=== PATIENT | male | born 1940 | race Caucasian/White ===

== ENCOUNTER 2017-11-15 10:24 | Inpatient (IN) | payer MEDICARE, BC ==
[2017-11-15 10:57] LABS: #Eosinphils 0.1 thou/uL (0.0-0.7); #Lymphocytes 1.3 thou/uL (1.20-3.40); #Monocytes 0.8 thou/uL (0.11-0.59); #Neutrophils 11.7 thou/uL (1.40-6.50); %Basophils 0.3 % (0.0-1.0); %Eosinophils 0.4 % (0.0-10.0); %Lymphocytes 9.2 % (21.0-51.0); %Monocytes 5.7 % (0.0-10.0); %Neutrophils 84.3 % (42.0-75.0); Hemoglobin 9.6 g/dL (14.0-18.0); Mean Corpuscular Volume 87.9 fL (78.0-98.0); Mean Platelet Volume 7.2 fL (7.4-10.4); Platelet Count 284 thou/uL (130-400); RBC Distribution Width 16.7 % (11.5-14.5); Red Blood Cell (RBC) Count 3.31 mill/uL (4.70-6.10); White Blood Cell (WBC) Count 13.9 thou/uL (4.8-10.8)
--- NOTE | 2017-11-15 11:10 | RAD ---
PORTABLE CHEST: History: Dyspnea. Comparison: 07-16-10 FINDINGS: Heart size is mildly prominent. Post op sternotomy change. Dual-lead pacemaker device appears adequat tamanna positioned. Lung arias appear clear. No infiltrate or vascular congestion. IMPRESSION: No evidence of acute process. POS: [facility]
[2017-11-15 11:18] LABS: ALT (SGPT) 10 U/L (8-55); AST (SGOT) 11 U/L (5-34); Albumin 4.2 g/dL (3.4-4.8); Alkaline Phosphatase 53 U/L (40-150); Anion Gap 18 mmol/L (10-20); BUN (Urea Nitrogen) 60 mg/dL (8.4-25.7); Bilirubin, Total 1.3 mg/dL (0.2-1.2); CK (CPK) 47 U/L (30-200); Calc. Creatinine Clearance 0 mL/min (70-130); Calcium 9.6 mg/dL (7.8-10.44); Carbon Dioxide 20 mmol/L (23-31); Chloride 99 mmol/L (98-107); Estimated GFR-MDRD 54; Globulin 2.3 g/dL (2.4-3.5); Glucose 177 mg/dL (83-110); Protein, Total 6.5 g/dL (5.8-8.1); Sodium 133 mmol/L (136-145)
[2017-11-15 11:23] LABS: CKMB 3.4 ng/mL (0-6.6); Troponin I 0.015 ng/mL (< 0.028)
[2017-11-15] MEDS ORDERED: ISOVUE-370 76%-LOCM 1 ML ONE (12:53)
--- NOTE | 2017-11-15 13:49 | CT ---
CT PULMONARY ANGIOGRAM CHEST WITH 3D RENDERING: HISTORY: A 76-year-old male with a history of dyspnea and hypoxia, shortness of breath. FINDINGS: Postop midline sternotomy and left ICD. Three-vessel coronary artery calcific disease. Motion artif act noted bilaterally lowering the sensitivity of this study, particularly into the smaller-caliber d istal pulmonary arteries. No convincing CT evidence for acute pulmonary embolism. Multiple gallston es within the gallbladder without gallbladder wall thickening or pericholecystic abnormal fat strandi ng. A small hiatal hernia. IMPRESSION: No convincing CT evidence for acute pulmonary embolism. Motion artifact lowers the sensitivity of th is study. Multiple gallstones. Small hiatal hernia. POS: [facility]
--- NOTE | 2017-11-15 16:31 | HP ---
PRIMARY CARE PHYSICIAN: Vijay Fields M.D. PRIMARY OCCUPATIONAL HEALTH AND SAFETY MANAGER: Fredy Waite M.D. REASON FOR ADMISSION: Dyspnea. HISTORY OF PRESENT ILLNESS: A 76-year-old male who has underlying history of hypertension, coronary artery disease with history of CABG as well as chronic lumbar stenosis and radicular pain to left low er extremity, who presented to emergency room with a complaint of shortness of breath. The patient r eports that at home when he stood up and he was trying to urinate, at that point he started feeling s hortness of breath. For last 2-3 days, he is also experiencing more shortness of breath than usual. He is able to ambulate with a walker. Today when paramedics was called by himself, at that time his oxygen saturation was 90% on 2 liters. Subsequently, in the emergency room when he was evaluated at that time, he was found with hypertension and he was saturating normal. He had slightly elevated D- dimer and that is why CT angio was done which was negative for pulmonary embolism. His chest x-ray w as also negative for any congestion. The patient had routine blood tests done which showed mild leuk ocytosis and a slightly elevated BNP. Cardiac enzymes were negative and EKG was unremarkable. The patient was continuously complaining of left lower extremity pain which was radicular pain from h is back which is unchanged significantly from previous. The patient also has previous history of rec drea cancer required chemotherapy and followed by Dr. Kim. This patient is not a good historian. Whenever he talks at that time he feels like he is short of br eath. He does not feel himself anxious. He is not wheezing. He does not have any respiratory sympt oms including cough or hemoptysis. He does not have any orthopnea, PND, or any pitting edema. He de nies any weight gain. He is taking Demadex regularly. For last 2-3 days, he was not able to sleep w ell at home for unknown reasons. He denies any chest pain, but with exertion he feels shortness of b reath. He denies any UTI symptoms. He denies any constipation, diarrhea, melena, or hematochezia. Sometimes he feels lightheaded with the standing position. REVIEW OF SYSTEMS: Please see my HPI for pertinent positive and negative. All other review of syste ms reviewed and negative except as mentioned in the HPI. Constitutional: Weight loss or gain, ability to conduct usual activities. Skin: Rash, itching. Eyes: Double vision, pain. ENT/Mouth: Nose bleeding, neck stiffness, pain, tenderness. Cardiovascular: Palpitations, dyspnea on exertion, orthopnea. Respiratory: Shortness of breath, wheezing, cough, hemoptysis, fever or night sweats. Gastrointestinal: Poor appetite, abdominal pain, heartburn, nausea, vomiting, constipation, or diarrhea. Genitourinary: Urgency, frequency, dysuria, nocturia. Musculoskeletal: Pain, swelling. Neurologic/Psychiatric: Anxiety, depression. Allergy/Immunologic: Skin rash, bleeding tendency. ALLERGIES: No known drug allergy. CURRENT HOME MEDICATIONS: Amlodipine 2.5 mg p.o. daily, aspirin 81 mg p.o. daily, atenolol 25 mg p.o . b.i.d., gabapentin 300 mg twice daily, torsemide 20 mg p.o. daily, Flomax 0.4 mg p.o. daily, [place] thacin 50 mg 3 times daily, Flexeril 10 mg t.i.d. p.r.n., Crestor 5 mg p.o. daily, Xanax 0.5 mg p.o. at bedtime p.r.n., [place] 5 one tablet q.6 hourly p.r.n. PAST MEDICAL HISTORY: Coronary artery disease, required CABG; hypertension; dyslipidemia; chronic co ngestive heart failure; history of rectal cancer treated with chemotherapy; history of CVA; physical deconditioning; lumbar stenosis with radiculopathy. PAST SURGICAL HISTORY: CABG, history of ileostomy with subsequent reversal. PAST PSYCHIATRIC HISTORY: Reviewed and negative. SOCIAL HISTORY: The patient is and lives at home with his family. He drinks alcohol occasio randee. He denies any smoking. He denies any other illicit drug abuse. FAMILY HISTORY: No strong family history of premature coronary artery disease, stroke or cancer. EMERGENCY ROOM COURSE: Reviewed. PHYSICAL EXAMINATION: VITAL SIGNS: Currently, blood pressure 161/67, pulse 95, respiratory rate 28, temperature 98.0, satu ration 100% on 2 liters oxygen. Weight 68 kilograms. GENERAL: The patient is a chronically ill appearing, no obvious acute distress. He is able to talk in full sentences, but appears short of breath. HEAD: Normocephalic, atraumatic. EYES: Pupils round, reactive to light. Extraocular muscle intact. ENT: Oropharynx within normal limits. Moist mucous membranes. No oral lesion, no pharyngeal erythe ma, no exudate. NECK: Supple, no JVD, no thyromegaly, no carotid bruit, no jugular venous distention. LUNGS: Clear to auscultation without any obvious rhonchi or rales. No congestion, no accessory musc les of respiration in use, though patient has tachypnea. CARDIAC: S1, S2 appears regular though monitor showing premature atrial contractions without any mur mur or gallop. ABDOMEN: Soft, bowel sounds present, nontender, nondistended. No organomegaly, no mass, no suprapub ic tenderness. BACK: Unremarkable, no CVA tenderness. EXTREMITIES: Upper extremity: Passive movement of all joints are normal. Lower extremity: Right l ower extremity is congenitally thinner than left lower extremity, but the patient does have mild gustavo ing edema on both lower extremities. NEUROLOGIC: Grossly nonfocal examination. Speech, normal. Motor and sensation within normal limits . SKIN: No skin rash. PSYCHIATRIC: Normal affect. SIGNIFICANT LABORATORY DATA: EKG showing incomplete left bundle branch block pattern, left anterior fascicular block. Chest x-ray showing sternotomy changes. Pacemaker lead in place. CT angio small hiatal hernia, no acute process noted. CBC: WBC 13.9, hemoglobin 9.6, platelet 284. BMP: Sodium 1 33, potassium 4.0, chloride 99, carbon dioxide 20, anion gap 18, BUN 60, creatinine 1.29, glucose 177 , calcium 9.6. LFTs: AST 11, ALT 10, alkaline phosphatase 53, albumin 4.2, CK 47, CK-MB 3.4, troponin I 0.015. D-d tammi 0.50. CT angiography negative for pulmonary embolism, small hiatal hernia noted multiple gallst ones noted. ASSESSMENT AND PLAN: 1. Dyspnea. At this point, etiology is not obvious based on our assessment so far. He has elevated BNP, but he has known history of congestive heart failure. We do not have any echocardiography in o system to determine type of EF and that is why we will obtain echocardiography. I am suspecting h is presentation could be a part of angina equivalent given dyspnea on exertion. We will do serial ca rdiac enzymes x3 and rule out acute coronary syndrome. Dr. Waite will be consulted and he will deci de whether this patient needs any stress test versus cardiac catheterization to determine any underly ing coronary stenosis. He does not have any thromboembolism based on CT angiography and the patient does not have any wheezing, rhonchi, or any respiratory symptoms to points toward lung pathology unde rlying anxiety neurosis is possible. 2. Congestive heart failure. Currently, the patient is euvolemic. We will obtain echocardiography to determine type of congestive heart failure. We will continue Demadex 20 mg p.o. daily. The patie nt already has AICD in place. Based on coronary artery disease and CABG history, suspecting systolic heart failure, but it is chronic and euvolemic. 3. Hypertension. We will continue amlodipine 2.5 mg p.o. daily, atenolol 25 mg twice daily. 4. Lumbar stenosis with radiculopathy. Continue gabapentin 300 mg twice daily, Flexeril 10 mg t.i.d . p.r.n., [place] 5 mg q.6 hourly p.r.n. 5. Dyslipidemia. Continue Crestor 5 mg p.o. at bedtime. Check lipid profile tomorrow morning. 6. Benign enlargement of prostate. Continue Flomax 0.4 mg p.o. daily. 7. Mild hyponatremia, mild leukocytosis. We will repeat CBC and BMP tomorrow. 8. Anemia, normocytic, normochromic. The patient will be given folic acid, vitamin B12, and iron th era. 9. Deep venous thrombosis prophylaxis not needed because we are expecting discharge in 24 hours. 10. Gastrointestinal prophylaxis, Pepcid 20 mg p.o. b.i.d. 11. Code status: The patient is FULL CODE. The patient's is surrogate decision maker. Disposition plan based on clinical course. We will check orthostatic vitals as well,and we will keep him n.p.o. tomorrow morning for possible further evaluation from cardiology perspective.
[2017-11-15] MEDS ORDERED: Artificial Tear Sol 15 ML BOT EA EYE PRN (16:48)
[2017-11-15] MEDS ORDERED: Ondansetron ODT 4 MG TAB PO PRN (16:48)
[2017-11-15] MEDS ORDERED: Loperamide HCl 2 MG CAP PO PRN (16:48)
[2017-11-15] MEDS ORDERED: Sodium Chloride 0.65% Nasal 44 ML BOT EA NARE PRN (16:48)
[2017-11-15] MEDS ORDERED: Chloraseptic Spray 180 ml Bottle PO PRN (16:48)
[2017-11-15] MEDS ORDERED: Senokot S 8.6-50 MG TAB PO PRN (16:48)
[2017-11-15] MEDS ORDERED: Ondansetron HCl/PF 4 MG/2 ML Vial IVP PRN (16:48)
[2017-11-15] MEDS ORDERED: Cyclobenzaprine 10 MG TAB PO PRN (16:48)
[2017-11-15] MEDS ORDERED: Acetaminophen 325 MG TAB PO PRN (16:48)
[2017-11-15] MEDS ORDERED: Eucerin (Mineral Oil/Petrolatum,White) 30 gm Jar TOP PRN (16:48)
[2017-11-15] MEDS ORDERED: Bisacodyl 5 MG TAB PO PRN (16:48)
[2017-11-15] MEDS ORDERED: Loratadine 10 MG TAB PO PRN (16:48)
[2017-11-15] MEDS ORDERED: hydrALAZINE 20 MG/ML VIAL SLOW IVP PRN (16:48)
[2017-11-15] MEDS ORDERED: Diabetic Tussin 200 MG/10 ML UDCUP PO PRN (16:48)
[2017-11-15 18:08] VITALS: BMI 26.7
[2017-11-15 18:57] LABS: CKMB 2.9 ng/mL (0-6.6); Troponin I 0.018 ng/mL (< 0.028)
[2017-11-15] MEDS: Rosuvastatin 5 MG TAB PO SCH (20:32)
[2017-11-15] MEDS: ALPRAZolam 0.5 MG TAB PO PRN (20:34)
[2017-11-15] MEDS: Gabapentin 100 MG CAP PO SCH (20:34)
[2017-11-15] MEDS: Famotidine 20 MG TAB PO SCH (20:34)
[2017-11-15] MEDS ORDERED: Atenolol 25 MG TAB PO SCH (21:00)
[2017-11-15] MEDS ORDERED: Gabapentin 300 MG CAP PO SCH (21:00)
[2017-11-15] MEDS: HYDROcodone/Acetaminophen 5/325 mg Tablet PO PRN (21:41)
[2017-11-15 22:11] LABS: CKMB 2.4 ng/mL (0-6.6); Troponin I 0.017 ng/mL (< 0.028)
[2017-11-16] MEDS: HYDROcodone/Acetaminophen 5/325 mg Tablet PO PRN ×2 (01:40→21:10)
[2017-11-16] MEDS: Zolpidem Tartrate 5 MG TAB PO PRN ×2 (01:42→21:10)
[2017-11-16 04:53] LABS: #Basophils 0.1 thou/uL (0.0-0.2); #Eosinphils 0.3 thou/uL (0.0-0.7); #Lymphocytes 1.2 thou/uL (1.20-3.40); #Neutrophils 6.7 thou/uL (1.40-6.50); %Basophils 0.8 % (0.0-1.0); %Lymphocytes 13.2 % (21.0-51.0); %Monocytes 10.4 % (0.0-10.0); %Neutrophils 72.6 % (42.0-75.0); Hemoglobin 7.7 g/dL (14.0-18.0); Mean Corpuscular HGB CONC 32.7 g/dL (32.0-36.0); Mean Corpuscular Hemoglobin 29.6 pg (27.0-31.0); Mean Corpuscular Volume 90.7 fL (78.0-98.0); Mean Platelet Volume 7.4 fL (7.4-10.4); Platelet Count 244 thou/uL (130-400); RBC Distribution Width 17.3 % (11.5-14.5); White Blood Cell (WBC) Count 9.2 thou/uL (4.8-10.8)
[2017-11-16 04:54] LABS: Anion Gap 15 mmol/L (10-20); BUN (Urea Nitrogen) 53 mg/dL (8.4-25.7); Calc. Creatinine Clearance 54 mL/min (70-130); Calcium 8.7 mg/dL (7.8-10.44); Carbon Dioxide 21 mmol/L (23-31); Cardiac Risk 3.3 (Less than 4.5); Chloride 102 mmol/L (98-107); Cholesterol 72 mg/dl (< 200 Desired); Estimated GFR-MDRD 66; Glucose 121 mg/dL (83-110); HDL Cholesterol 22 mg/dL (>60 Neg Risk); Iron 85 ug/dL (65-175); Iron Binding Capacity, Total 284 mcg/dL (261-462); LDL Cholesterol, Calculated 28 mg/dL; Potassium 3.9 mmol/L (3.5-5.1); Sodium 134 mmol/L (136-145); Triglycerides 111 mg/dL (Less than 150)
[2017-11-16 04:55] LABS: Iron 85 ug/dL (65-175)
[2017-11-16 05:29] LABS: Ferritin 26.23 ng/mL (22-322)
[2017-11-16] MEDS ORDERED: Iron Sucrose Complex 200 MG in Sodium Chloride 0.9% 250 ML 250 ML IVPB SCH (06:45)
[2017-11-16] MEDS ORDERED: Iron Dextran 500 MG in Sodium Chloride 0.9% 250 ML IVPB SCH (06:45)
[2017-11-16] MEDS ORDERED: Ferrous Sulfate 325 MG TAB PO SCH (08:00)
[2017-11-16] MEDS ORDERED: Torsemide 20 MG TAB PO SCH (09:00)
[2017-11-16] MEDS ORDERED: Tamsulosin HCl 0.4 MG CAP PO SCH (09:00)
[2017-11-16] MEDS ORDERED: Amlodipine 5 MG TAB PO SCH (09:00)
[2017-11-16 10:07] LABS: Hemoglobin 8.1 g/dL (14.0-18.0)
[2017-11-16] MEDS: Cyanocobalamin (Vitamin B-12) 1,000 MCG TAB PO SCH (10:23)
[2017-11-16] MEDS: Folic Acid 1 MG TAB PO SCH (10:23)
[2017-11-16] MEDS: Famotidine 20 MG TAB PO SCH ×2 (10:24→21:10)
--- NOTE | 2017-11-16 12:01 | CON ---
DATE OF CONSULTATION: 11/16/2017 REASON FOR CONSULTATION: Difficulty breathing, diastolic congestive heart failure, anemia. HISTORY OF PRESENT ILLNESS: Mr. Padron is a pleasant 76-year-old gentleman who came to the hospital yesterday with shortness of breath. While he has been here, he has been found to be significantly a nemic and iron deficient. The patient does have a previous history of coronary artery bypass grafting. It was noted that his d istal vessels were relatively small on previous evaluation prior to his bypass surgery. He underwent coronary artery bypass grafting by Dr. Salcedo in 2009. He had internal mammary to LAD, 1 mm, vein gr aft to the obtuse marginal 1 mm, vein graft to posterior descending artery 1.5 mm, vein graft to post erolateral artery 1.25 mm. The patient has subsequently had a colon cancer with a successful surgery . He was admitted to the hospital yesterday after complaining of shortness of breath which occurred when he stood up. He has been kept overnight. He says he has been short of breath the last 2-3 days prior to this admission. REVIEW OF SYSTEMS: CONSTITUTIONAL: No significant weight gain or loss. VISION: No changes. HEARING: No changes. PULMONARY: Positive for shortness of breath. CARDIAC: Positive for shortness of breath. GASTROINTESTINAL: No nausea, vomiting, diarrhea. He said he has noted some black stools. SKIN: No rashes. NEUROLOGIC: No unilateral weakness or numbness. PSYCHIATRIC: No unusual depression or anxiety. ALLERGIES: None known. MEDICATIONS PRIOR TO ADMISSION: 1. Amlodipine 2.5 mg a day. 2. Aspirin 81 mg a day. 3. Atenolol 25 mg twice a day. 4. Gabapentin. 5. Torsemide 20 mg a day. 6. Indomethacin 50 mg 3 times a day. 7. Xanax. 8. Crestor. 9. [place]. PAST MEDICAL HISTORY: 1. Coronary artery disease as mentioned above. 2. Hypertension. 3. History of renal insufficiency in 2014. He was on VIC inhibitors at that time. VIC inhibitors w ere stopped. I do not know if he is on nonsteroidal anti-inflammatories at that time, but they need to be stopped. PAST SURGICAL HISTORY: History as outlined above. PSYCHIATRIC HISTORY: Negative. SOCIAL HISTORY: Occasional alcohol, no tobacco. FAMILY HISTORY: Negative for heart disease at a young age. PHYSICAL EXAMINATION: GENERAL: This is a pleasant elderly gentleman, 76 years of age. VITAL SIGNS: Blood pressure 111/53, pulse 70. LUNGS: Clear anterolaterally. CARDIOVASCULAR: Normal S1, normal S2. ABDOMEN: Soft, nontender. EXTREMITIES: No clubbing or cyanosis, no edema. Peripheral pulses are intact. SKIN: Warm and dry. PSYCHIATRIC: Mood and affect normal. NEUROLOGIC: Grossly normal. PERTINENT LABORATORY DATA: Sodium 134, potassium 3.9. BNP 148.5, elevated. Troponin levels were 0. 018 in the negative range. Ferritin level very low at 26.2. ASSESSMENT: 1. Previous coronary artery bypass grafting. 2. Shortness of breath. I got a quick look at the preliminary images of the echo, the ejection frac tion is normal. It appears he has diastolic heart failure, likely acute on chronic, may be precipita memo by anemia. 3. Iron deficiency anemia. 4. On nonsteroidal anti-inflammatories. 5. Some history of renal insufficiency in the past. PLAN: 1. Stop atenolol. 2. Avoid nonsteroidal anti-inflammatories. 3. We will give intravenous iron. 4. He is on Pepcid. 5. Check further blood counts later today. 6. If blood count stabilizes proceed to stress testing tomorrow. 7. Start a very low dose angiotensin receptor blockers and monitor kidney function. 8. As mentioned complete cessation of any anti-inflammatories. We will follow with you during this hospitalization.
--- NOTE | 2017-11-16 14:02 | PDOC.PN ---
- Subjective Encounter Start Date: 11/16/17 Encounter Start Time: 09:30 Subjective: Follow up for admission for dyspnea, HAUSER, denies chest pain - Objective Resuscitation Status: Resuscitation Status FULL:Full Resuscitation MAR Reviewed: Yes Vital Signs & Weight: Vital Signs (12 hours) Temp Pulse Resp BP BP Pulse Ox 11/16/17 10:20 100 11/16/17 07:09 98.1 F 70 16 111/53 L 97 11/16/17 05:03 97.5 F L 70 19 129/58 L 95 Weight Weight 66.361 kg I&O: 11/15/17 11/16/17 11/17/17 06:59 06:59 06:59 Intake Total 480 Output Total 302 Balance 178 Result Diagrams: 11/24/17 03:21 11/24/17 03:21 EKG Reviewed by me: Yes Phys Exam - Physical Examination HEENT: PERRLA, moist MMs Neck: no nodes, no JVD Respiratory: no rales, clear to auscultation bilateral Cardiovascular: RRR Gastrointestinal: soft, non-tender Musculoskeletal: pulses present right leg is congentially shorter than left Neurological: normal sensation, moves all 4 limbs Lymphatic: no nodes Psychiatric: normal affect, A&O x 3 Skin: no rash, normal turgor, cap refill <2 seconds Dx/Plan (1) CHF (NYHA class III, ACC/AHA stage C) Code(s): I50.9 - HEART FAILURE, UNSPECIFIED Status: Chronic Plan: Stress test and Echo today, Dr. Waite changed his medication, dc'd atenolol, added benicar, will continue to monitor Comment: Diastolic, Compensated currently, med mgmt, no exacerbation (2) Iron deficiency anemia Code(s): D50.9 - IRON DEFICIENCY ANEMIA, UNSPECIFIED Status: Chronic Plan: Dr. Waite ordered 2 bags of IV Ferritin infusion to be given today, we will continue to monitor (3) Hypertension Code(s): I10 - ESSENTIAL (PRIMARY) HYPERTENSION Status: Chronic Plan: change to benicar from atenolol, will continue to monitor Comment: controlled - Plan cont current plan of care, DVT proph w/lovenox Patient had a consult from Dr. Waite this AM, patient is going for Echo and a Stress test today * .
[2017-11-16] MEDS: Iron, Sodium Ferric Gluconate 250 MG, Admixture Fee 1 EACH in Sodium Chloride 0.9% 250 ... IVPB SCH ×2 (14:12→21:05)
--- NOTE | 2017-11-16 14:29 | PDOC.EVN ---
Event Note - Event Note Event Note: discussed POC with rachael Candelaria with same
--- NOTE | 2017-11-16 16:08 | PDOC.EVN ---
Event Note - Event Note Event Note: pos stress test. again dicuuued plan with NACHO Marcano
--- NOTE | 2017-11-16 16:10 | PDOC.EVN ---
Event Note - Event Note Event Note: Mr. Padron had a positive stress test and Dr. Waite notified. Patient will be admitted for cardiac cath tomorrow.
--- NOTE | 2017-11-16 16:46 | NM ---
MYOCARDIAL PERFUSION EXAM: 11/16/17 Patient was given 9 millicuries of technetium labeled Sestamibi for rest imaging and 30 millicuries f or stress imaging. The patient was stressed according to Lexiscan protocol. INDICATIONS: Chest pain. Left ventricle is imaged with SPECT imaging. CT attenuation images obtained. FINDINGS: There is evidence of reversible ischemia involving the apex with involvement of the anterior and late ral apical nunes. Wall motion shows mild dyskinesis involving the anterior and septal nunes. Ejection fraction recorded at 61%. IMPRESSION: Positive Sestamibi stress test with evidence of reversible ischemic as described above. POS: [facility]
[2017-11-16] MEDS ORDERED: Sodium Chloride 0.9% 500 ML IV SCH (17:45)
[2017-11-16] MEDS ORDERED: Regadenoson 0.4 MG/5 ML SYRINGE ONE (17:46)
[2017-11-16] MEDS ORDERED: Communication Order-Pharmacy FS SCH (18:15)
[2017-11-16] MEDS ORDERED: Diazepam 5 MG TAB PO SCH (18:15)
--- NOTE | 2017-11-16 21:07 | PRG ---
DATE OF SERVICE: 11/16/2017 Mr. Padron had a stress test done today, which showed extensive anterior ischemia. He did receive intravenous iron, was sitting on the side of the bed and the infusion was at 135 an ho ur. His pressure dropped at that time, it is unclear whether his iron is probably multifactorial. ASSESSMENT: 1. Extensive anterior ischemia. 2. Previous bypass surgery. 3. Right bundle branch block. PLAN: Cardiac catheterization tomorrow. I discussed risks of stroke, heart attack, iodine allergy, loss of blood supply to the leg or kidney, stent thrombosis, stent restenosis. He understands and wi shes to proceed. I will be out tomorrow. One of my partners probably Dr. Tong to do tomorrow.
[2017-11-16] MEDS: Gabapentin 100 MG CAP PO SCH (21:09)
[2017-11-16] MEDS: ALPRAZolam 0.5 MG TAB PO PRN (21:10)
[2017-11-16] MEDS: Rosuvastatin 5 MG TAB PO SCH (21:10)
[2017-11-17] MEDS: Nitroglycerin 0.4 MG TAB (25 Tab Bottle) SL PRN ×2 (00:36→00:39)
[2017-11-17] MEDS ORDERED: Lidocaine 1% (PF) 30 ML VIAL ONE ×2 (08:29→11:58)
[2017-11-17] MEDS ORDERED: Iopamidol 370 76% 50 ML VIAL FS ONE (10:36)
[2017-11-17] MEDS ORDERED: Iopamidol 370 76% 100 ML VIAL ONE (10:36)
[2017-11-17] MEDS ORDERED: Heparin 10,000 UNITS/1 ML VIAL ONE (12:32)
[2017-11-17] MEDS ORDERED: Nitroglycerin 100MG/250ML BOT 250 ML ONE (12:32)
[2017-11-17] MEDS: Sodium Chloride 0.9% 1,000 ML IV SCH ×3 (13:26→17:36)
[2017-11-17] MEDS ORDERED: TICAGRELOR 90 MG TABLET ONE (13:55)
[2017-11-17] MEDS: Folic Acid 1 MG TAB PO SCH (17:05)
[2017-11-17] MEDS: Famotidine 20 MG TAB PO SCH ×3 (17:05→20:39)
[2017-11-17] MEDS: Cyanocobalamin (Vitamin B-12) 1,000 MCG TAB PO SCH (17:05)
--- NOTE | 2017-11-17 17:05 | PDOC.PN ---
- Subjective Encounter Start Date: 11/17/17 Encounter Start Time: 16:00 Subjective: f/u for positive stress test yesterday -: scheduled for cardiac cath today - Objective Resuscitation Status: Resuscitation Status FULL:Full Resuscitation MAR Reviewed: Yes Vital Signs & Weight: Vital Signs (12 hours) Temp Pulse Resp BP Pulse Ox 11/17/17 16:23 97.6 F 71 16 118/58 L 95 Weight Weight 66.361 kg I&O: 11/16/17 11/17/17 11/18/17 06:59 06:59 06:59 Intake Total 480 970 Output Total 302 100 Balance 178 870 Result Diagrams: 11/16/17 09:50 11/16/17 03:50 Radiology Reviewed by me: Yes Phys Exam - Physical Examination HEENT: PERRLA, moist MMs, sclera anicteric Neck: no nodes, no JVD, full ROM Respiratory: no wheezing, no rales, no rhonchi, wheezing present, clear to auscultation bilateral Cardiovascular: RRR, no significant murmur, no rub, gallop, irregular Gastrointestinal: soft, non-tender, no distention, positive bowel sounds reports some worsening pain to his right leg from being in the hospital bed reports pain is chronic but worse today Neurological: non-focal, normal sensation, moves all 4 limbs Lymphatic: no nodes Psychiatric: normal affect, A&O x 3 Skin: no rash, normal turgor, cap refill <2 seconds Dx/Plan (1) CHF (NYHA class III, ACC/AHA stage C) Code(s): I50.9 - HEART FAILURE, UNSPECIFIED Status: Chronic (2) Iron deficiency anemia Code(s): D50.9 - IRON DEFICIENCY ANEMIA, UNSPECIFIED Status: Chronic (3) Hypertension Code(s): I10 - ESSENTIAL (PRIMARY) HYPERTENSION Status: Chronic - Plan cont current plan of care, DVT proph w/SCDs Patient had a cardiac cath today with one stent placed. Will continue to monitor overnight. * .
[2017-11-17] MEDS ORDERED: Nitroglycerin 0.4 MG TAB (25 Tab Bottle) SL PRN (17:07)
[2017-11-17 17:38] LABS: #Eosinphils 0.3 thou/uL (0.0-0.7); #Lymphocytes 0.8 thou/uL (1.20-3.40); #Monocytes 0.6 thou/uL (0.11-0.59); #Neutrophils 5.6 thou/uL (1.40-6.50); %Basophils 0.5 % (0.0-1.0); %Eosinophils 3.9 % (0.0-10.0); %Lymphocytes 10.6 % (21.0-51.0); %Monocytes 8.2 % (0.0-10.0); %Neutrophils 76.8 % (42.0-75.0); Hemoglobin 6.7 g/dL (14.0-18.0); Mean Corpuscular HGB CONC 33.1 g/dL (32.0-36.0); Mean Corpuscular Volume 90.6 fL (78.0-98.0); Mean Platelet Volume 7.4 fL (7.4-10.4); Platelet Count 194 thou/uL (130-400); RBC Distribution Width 17.4 % (11.5-14.5); Red Blood Cell (RBC) Count 2.22 mill/uL (4.70-6.10); White Blood Cell (WBC) Count 7.3 thou/uL (4.8-10.8)
[2017-11-17] MEDS: HYDROcodone/Acetaminophen 5/325 mg Tablet PO PRN (20:22)
[2017-11-17] MEDS: Rosuvastatin 5 MG TAB PO SCH ×2 (20:23→20:25)
[2017-11-17] MEDS: Gabapentin 100 MG CAP PO SCH ×2 (20:23→20:25)
[2017-11-17] MEDS: Zolpidem Tartrate 5 MG TAB PO PRN (20:23)
[2017-11-17] MEDS: ALPRAZolam 0.5 MG TAB PO PRN (20:23)
[2017-11-17] MEDS: Tamsulosin HCl 0.4 MG CAP PO SCH (20:24)
--- NOTE | 2017-11-17 23:24 | CCL ---
ADDENDUM: After proceeding with angiography, I reviewed his previous films during the case. It appeared the LAD was 100% occluded in the mid section. There was a diagonal branch with a 70-80% stenosis in the mid region. It was then decided to proceed with angiography. Prior to angiography, I did consent the procedure w ith the patient in full detail. The risks include but are not limited to the following: , stro ke, [place], need for emergency surgery, loss of limb, bleeding, and infection, as well as a reaction to t he dye causing kidney failure and needing long-term dialysis. I also discussed the risks of PCI to i nclude all of the above including coronary dissection and perforation in addition to acute stent thro mbosis and restenosis. All questions about the procedure were answered. Given the above, the patien t agreed to proceed with coronary angiography and possible PCI. All questions were answered. Also discussed drug-coated versus nondrug-coated stent placement. There were no contraindications. We will proceed if needed. He does have back pain, but states injection s and surgery are no longer needed.
[2017-11-18] MEDS: Sodium Chloride 0.9% 1,000 ML IV SCH ×3 (03:16→18:14)
[2017-11-18 06:09] LABS: #Eosinphils 0.2 thou/uL (0.0-0.7); #Lymphocytes 0.6 thou/uL (1.20-3.40); #Monocytes 0.6 thou/uL (0.11-0.59); #Neutrophils 5.1 thou/uL (1.40-6.50); %Basophils 0.6 % (0.0-1.0); %Eosinophils 2.9 % (0.0-10.0); %Lymphocytes 8.9 % (21.0-51.0); %Monocytes 8.5 % (0.0-10.0); Hemoglobin 6.2 g/dL (14.0-18.0); Mean Corpuscular HGB CONC 33.4 g/dL (32.0-36.0); Mean Corpuscular Hemoglobin 30.2 pg (27.0-31.0); Mean Corpuscular Volume 90.3 fL (78.0-98.0); Mean Platelet Volume 6.7 fL (7.4-10.4); Platelet Count 164 thou/uL (130-400); RBC Distribution Width 17.2 % (11.5-14.5); Red Blood Cell (RBC) Count 2.04 mill/uL (4.70-6.10); White Blood Cell (WBC) Count 6.5 thou/uL (4.8-10.8)
[2017-11-18 06:33] LABS: Anion Gap 12 mmol/L (10-20); BUN (Urea Nitrogen) 24 mg/dL (8.4-25.7); Calc. Creatinine Clearance 70 mL/min (70-130); Calcium 8.4 mg/dL (7.8-10.44); Carbon Dioxide 21 mmol/L (23-31); Chloride 109 mmol/L (98-107); Estimated GFR-MDRD 89; Glucose 96 mg/dL (83-110); Potassium 3.7 mmol/L (3.5-5.1); Sodium 138 mmol/L (136-145)
[2017-11-18 06:36] LABS: ALT (SGPT) 8 U/L (8-55); AST (SGOT) 11 U/L (5-34); Albumin 3.2 g/dL (3.4-4.8); Alkaline Phosphatase 43 U/L (40-150); Anion Gap 10 mmol/L (10-20); BUN (Urea Nitrogen) 24 mg/dL (8.4-25.7); Bilirubin, Total 0.8 mg/dL (0.2-1.2); Calc. Creatinine Clearance 69 mL/min (70-130); Calcium 8.4 mg/dL (7.8-10.44); Carbon Dioxide 22 mmol/L (23-31); Chloride 109 mmol/L (98-107); Estimated GFR-MDRD 86; Globulin 1.8 g/dL (2.4-3.5); Glucose 98 mg/dL (83-110); Potassium 3.6 mmol/L (3.5-5.1); Sodium 137 mmol/L (136-145)
[2017-11-18] MEDS ORDERED: Clopidogrel Bisulfate 75 MG TAB PO SCH (09:00)
[2017-11-18] MEDS ORDERED: Acetaminophen 325 MG TAB PO SCH (09:00)
[2017-11-18] MEDS ORDERED: diphenhydrAMINE 50 MG CAP PO SCH (09:00)
[2017-11-18] MEDS: Famotidine 20 MG TAB PO SCH ×2 (09:37→21:47)
[2017-11-18] MEDS: Cyanocobalamin (Vitamin B-12) 1,000 MCG TAB PO SCH (09:38)
[2017-11-18] MEDS: Folic Acid 1 MG TAB PO SCH (09:38)
--- NOTE | 2017-11-18 11:40 | PDOC.PN ---
- Subjective Encounter Start Date: 11/18/17 Encounter Start Time: 08:00 Subjective: Follow up from SOB, cardiac cath yesterday, - Objective Resuscitation Status: Resuscitation Status FULL:Full Resuscitation MAR Reviewed: Yes Vital Signs & Weight: Vital Signs (12 hours) Temp Pulse Resp BP Pulse Ox 11/18/17 11:04 97.9 F 20 98 11/18/17 10:40 98.4 F 22 H 98 11/18/17 07:40 98.3 F 86 24 H 136/62 96 11/18/17 03:55 98.5 F 80 14 128/60 95 Weight Weight 65.045 kg Most Recent Monitor Data Heart Rate from ECG 87 NIBP 110/51 I&O: 11/17/17 11/18/17 11/19/17 06:59 06:59 06:59 Intake Total 970 2830 0 Output Total 100 100 Balance 870 2730 0 Result Diagrams: 11/18/17 05:51 11/18/17 05:51 Phys Exam - Physical Examination pleasant, denies pain today, in no acute distress HEENT: PERRLA, moist MMs, sclera anicteric Neck: no nodes, full ROM Respiratory: no wheezing, no rales, no rhonchi, wheezing present, clear to auscultation bilateral Cardiovascular: RRR, no significant murmur, no rub, gallop, irregular Gastrointestinal: soft, non-tender, no distention, positive bowel sounds right leg shorter/thinner than left Neurological: non-focal, normal sensation, moves all 4 limbs Psychiatric: normal affect, A&O x 3 Skin: no rash, normal turgor, cap refill <2 seconds Dx/Plan (1) CHF (NYHA class III, ACC/AHA stage C) Code(s): I50.9 - HEART FAILURE, UNSPECIFIED Status: Chronic (2) Iron deficiency anemia Code(s): D50.9 - IRON DEFICIENCY ANEMIA, UNSPECIFIED Status: Chronic (3) Hypertension Code(s): I10 - ESSENTIAL (PRIMARY) HYPERTENSION Status: Chronic - Plan cont current plan of care -: Hemaglobin down to 6.2, 2 PRBC units order today by Dr. Tong -: GI consult for possible lower GI, has hx of colon ca, on plavix and ASA -: Continue to monitor H&H, labs, vital signs * .
[2017-11-18] MEDS: Furosemide 20 MG/2 ML VIAL SLOW IVP SCH ×2 (14:29→18:20)
--- NOTE | 2017-11-18 19:51 | PDOC.CTH ---
Cardiology Progress Note - Subjective Pt doing well this am. Followed up with pt several times this am and this afternoon. Despite Hb of 6.2, no symptoms. Does not complain of hematochezia or melena. Previous EGD per pt last yr and preequent colonscopy per daughter given h/o rectal cancer. - Objective Vital Signs Temp Pulse Resp BP BP Pulse Ox 11/18/17 18:20 97.9 F 20 100 11/18/17 15:19 97.9 F 20 100 11/18/17 15:15 97.9 F 69 20 122/56 L 100 11/18/17 14:11 97.7 F 20 98 11/18/17 11:07 97.9 F 87 20 110/51 L 11/18/17 11:04 97.9 F 20 98 11/18/17 10:40 98.4 F 22 H 98 11/18/17 07:40 98.3 F 86 24 H 136/62 96 Weight 143 lb 6.4 oz 11/17/17 11/18/17 11/19/17 06:59 06:59 06:59 Intake Total 970 2830 700 Output Total 100 100 Balance 870 2730 700 - Physical Examination General/Neuro: NAD Neck: carotid US brisk, no JVD present Lungs: CTA, unlabored respirations Heart: PMI normal, RRR Abdomen: no HSM, NT/ND, soft Extremities: + edema B - Labs Result Diagrams: 11/18/17 05:51 11/18/17 05:51 Troponin/CKMB CK-MB (CK-2) 2.4 ng/mL (0-6.6) 11/15/17 21:32 Troponin I 0.017 ng/mL (< 0.028) 11/15/17 21:32 - Assessment/Plan Severe CAD s/p CABG Severe one vessel disease s/p drug coated stent Anemia CV status stable Given low Hb, recommend transfusion of two units GI consult; discussed with GI
[2017-11-18 20:23] LABS: Hemoglobin 9.4 g/dL (14.0-18.0)
[2017-11-18] MEDS: Zolpidem Tartrate 5 MG TAB PO PRN (21:46)
[2017-11-18] MEDS: Rosuvastatin 5 MG TAB PO SCH (21:48)
[2017-11-18] MEDS: HYDROcodone/Acetaminophen 5/325 mg Tablet PO PRN (21:49)
[2017-11-18] MEDS: Tamsulosin HCl 0.4 MG CAP PO SCH ×2 (21:50→21:53)
[2017-11-18] MEDS: ALPRAZolam 0.5 MG TAB PO PRN (21:50)
[2017-11-19 04:59] LABS: #Basophils 0.1 thou/uL (0.0-0.2); #Eosinphils 0.2 thou/uL (0.0-0.7); #Lymphocytes 1.2 thou/uL (1.20-3.40); #Monocytes 0.9 thou/uL (0.11-0.59); #Neutrophils 7.1 thou/uL (1.40-6.50); %Basophils 0.5 % (0.0-1.0); %Lymphocytes 12.3 % (21.0-51.0); %Neutrophils 75.2 % (42.0-75.0); Hemoglobin 7.5 g/dL (14.0-18.0); Mean Corpuscular HGB CONC 33.9 g/dL (32.0-36.0); Mean Corpuscular Hemoglobin 30.5 pg (27.0-31.0); Mean Corpuscular Volume 89.9 fL (78.0-98.0); Mean Platelet Volume 7.5 fL (7.4-10.4); Platelet Count 216 thou/uL (130-400); RBC Distribution Width 16.8 % (11.5-14.5); Red Blood Cell (RBC) Count 2.47 mill/uL (4.70-6.10); White Blood Cell (WBC) Count 9.4 thou/uL (4.8-10.8)
[2017-11-19] MEDS ORDERED: Pantoprazole 40 MG VIAL IVP SCH (05:00)
[2017-11-19] MEDS ORDERED: Pantoprazole 80 MG in Sodium Chloride 0.9% 100 ML IVP SCH (05:00)
[2017-11-19] MEDS ORDERED: Sodium Chloride 0.9% 1,000 ML IV SCH (05:00)
[2017-11-19 05:17] LABS: ALT (SGPT) Less than 7 U/L (8-55); AST (SGOT) 10 U/L (5-34); Albumin 3.1 g/dL (3.4-4.8); Alkaline Phosphatase 44 U/L (40-150); Anion Gap 13 mmol/L (10-20); BUN (Urea Nitrogen) 39 mg/dL (8.4-25.7); Bilirubin, Total 1.4 mg/dL (0.2-1.2); Calc. Creatinine Clearance 57 mL/min (70-130); Calcium 8.4 mg/dL (7.8-10.44); Carbon Dioxide 22 mmol/L (23-31); Chloride 104 mmol/L (98-107); Estimated GFR-MDRD 72; Globulin 1.7 g/dL (2.4-3.5); Glucose 180 mg/dL (83-110); Potassium 3.8 mmol/L (3.5-5.1); Protein, Total 4.8 g/dL (5.8-8.1); Sodium 135 mmol/L (136-145)
--- NOTE | 2017-11-19 06:21 | PDOC.EVN ---
Event Note - Event Note Event Note: paged by RN pt was hypotensive, and orthostatic, found to have large melanotic stool, pt has received hydration, and will receive blood transfusion given significant drop in hb and active bleeding in an scenario where patient has got recent stent and currently in aspirin and plavix, GI had been consulted
[2017-11-19] MEDS ORDERED: Promethazine HCl 25 MG/ML VIAL IM PRN (07:11)
[2017-11-19] MEDS ORDERED: Ondansetron HCl/PF 4 MG/2 ML Vial IVP PRN (07:11)
[2017-11-19] MEDS ORDERED: Promethazine HCl 25 MG/ML VIAL SLOW IVP PRN (07:11)
--- NOTE | 2017-11-19 07:53 | CON ---
DATE OF CONSULTATION: 11/18/2017 REASON FOR CONSULTATION: Anemia. CONSULTING PHYSICIAN: Dr. Peter Tong. HISTORY OF PRESENT ILLNESS: The patient is a 76-year-old male with past medical history of atrial fi brillation, on anticoagulation; coronary artery disease, status post CABG; hypertension; hyperlipidem ia; congestive heart failure; cerebrovascular accident; lumbar stenosis; and rectal cancer, status po st chemotherapy; presenting with complaints of anemia. He was initially admitted to the hospital wit h complaints of increased shortness of breath that occurred with postural changes and with micturitio n. With his increased shortness of breath, he subsequently called the paramedics, who transferred catalina wilder to [facility] for further evaluation. During the course of this hospitalization, he under went a nuclear stress test that was shown to have ischemia to the anterior wall. This then further p rompted a cardiac catheterization that was performed on 11/16/2017 with stent placement for revascula rization; however, over the last 48 hours, he was also noted to have a mild anemia on admission that had since decreased to hemoglobin of 7.7 on 11/16/2017 prior to the cardiac catheterization. He was ultimately given 2 units of blood and responded appropriately over the last 24 hours. Upon interview ing the patient today, he denies any evidence of overt GI bleeding, although he did have some darker brown/black-colored solid stools within the last 2-3 weeks prior to admission. He does endorse const ipation at home, having approximately one solid bowel movement every 4-5 days that would require incr eased straining in order to facilitate defecation prior to admission. At this point, he currently de nies any nausea, vomiting, fevers, chills, shortness of breath, abdominal pain, GI bleeding, dysphagi a, odynophagia, or weight loss. His most recent colonoscopy was performed on 12/03/2015 that showed a normal rectal colonic anastomos is as well as normal-appearing tissue throughout the remainder of the colon. His most recent upper e ndoscopy was performed on 09/15/2016, which showed 2 strictures at 36 cm and 20 cm past the incisors that were successfully intervened upon by balloon. REVIEW OF SYSTEMS: A 10-category review of systems was obtained with all responses negative except f or the pertinent positives as listed in the HPI. PAST MEDICAL HISTORY: As per HPI. PAST SURGICAL HISTORY: CABG, colonic resection with ileostomy, and subsequent reversal. FAMILY HISTORY: Denies any GI malignancy. SOCIAL HISTORY: Occasional alcohol use. Denies any tobacco or illicit drug use. OUTPATIENT MEDICATIONS: Reviewed. ALLERGIES: No known drug allergies. PHYSICAL EXAMINATION: VITAL SIGNS: Temperature 98.8, pulse 93, blood pressure 110/53, respiratory rate 20, satting 98% on room air. GENERAL: The patient was lying in bed in no acute distress. Alert and oriented x4. HEENT: Neck is supple. No JVD or scleral icterus noted. CARDIOVASCULAR: Regular rate and rhythm with a 3/6 systolic murmur, best heard at the left upper farshad rnal border. No discernible gallops or rubs were auscultated. RESPIRATORY: Clear to auscultation bilaterally with no discernible wheezes or rales. ABDOMINAL: Normoactive bowel sounds, soft, nontender, nondistended. EXTREMITIES: No cyanosis, clubbing, or edema. LABORATORY DATA: CBC with a white blood cell count of 6.5, hemoglobin 6.5, hematocrit 18.4, platelet s 164. Iron 85, TIBC 284, ferritin 26. Chemistry with a sodium of 138, potassium 3.7, chloride 109, CO2 of 21, BUN 24, creatinine 0.84, glucose 96, AST 11, ALT 8, alkaline phosphatase 43, total biliru bin 0.8, albumin 3.2. IMAGING DATA: EGD and colonoscopy as reviewed above. CT angiography performed on 11/15/2017 was wit hout evidence of pulmonary embolism. ASSESSMENT AND PLAN: The patient is a 76-year-old male with past medical history of atrial fibrillat ion; coronary artery disease, status post coronary artery bypass grafting and now recently stent plac ement; hypertension; hyperlipidemia; congestive heart failure; cerebrovascular accident; lumbar steno sis; and rectal cancer, status post colonic resection, chemotherapy, and reanastomosis, presenting wi th significant anemia of unknown etiology. Anemia of unknown etiology. The patient is presenting with increased shortness of breath at rest and exertion, especially with micturition with a recent cardiac stress test positive for anterior wall i schemia. He subsequently underwent a cardiac catheterization on 11/17/2017 with a stent placement at that time. However, during the course of this hospitalization, he has been noted to have a decreasi ng H and H without any evidence of overt bleeding, GI or otherwise. Upon review of his iron indices, they were not indicative of an iron deficiency anemia, but rather anemia of chronic disease or renal disease. Upon review of his prior endoscopies within the last 2-3 years, there was no evidence of c olonic polyp or malignancy on the most recent colonoscopy in 2016, but he did have an upper endoscopy in 2017 that showed the presence of esophageal strictures, but he is not currently complaining of dy sphagia at the current time. At this point, the differential is broad, but could include mild bleedi ng within the gastrointestinal tract, contributing to his current anemia, although chronic gastrointe stinal bleeding is much less likely given the fairly normal iron indices not indicative of an iron de ficiency anemia or anemia of chronic gastrointestinal blood loss. RECOMMENDATIONS: 1. We would continue to trend H and H and transfuse as necessary to maintain an H and H of 7/21. 2. Continue to monitor clinically for signs of active gastrointestinal bleeding. 3. We will place the patient on a clear liquid diet tonight with n.p.o. at midnight in preparation f or both an EGD and colonoscopy in the morning for further evaluation of this anemia. 4. If the upper and lower endoscopy are normal or there is no evidence of GI bleeding, I would consi toni non-GI source of bleeding given the lack of iron deficiency anemia or anemia of gastrointestinal blood loss on labs. We will continue to follow. Please call with any questions.
--- NOTE | 2017-11-19 09:01 | PDOC.CTH ---
Cardiology Progress Note - Subjective Pt with recent episode of orthostatic hypotension followed by large melanic stool. Pt transferred to MICU for observation. EGD this am reveled two small ulcers. One underwent caudery while the other was clean. Likely related to NSAID use. - Objective Vital Signs Temp Pulse Resp BP BP Pulse Ox 11/19/17 05:53 100 11/19/17 05:15 97.9 F 83 18 117/45 L 100 11/19/17 04:48 104 H 112/55 L 11/19/17 04:44 99 102/49 L 11/19/17 04:27 94 95/53 L 11/19/17 03:35 98.4 F 79 19 132/75 94 L 11/18/17 23:40 98.8 F 93 20 110/53 L 98 Weight 143 lb 6.4 oz 11/18/17 11/19/17 11/20/17 06:59 06:59 06:59 Intake Total 2830 1550 Output Total 100 2751 Balance 2730 -1201 - Labs Result Diagrams: 11/19/17 10:57 11/19/17 04:27 Troponin/CKMB CK-MB (CK-2) 2.4 ng/mL (0-6.6) 11/15/17 21:32 Troponin I 0.017 ng/mL (< 0.028) 11/15/17 21:32 - Assessment/Plan GI bleed Severe CAD s/p stent hemodynamically stable Discussed with Dr. Ivy. Recommend stopping ASA for 24 hours and continuing with plavix to allow ulcer to heal. No good data on how to proceed after stent implantation and GI bleed. Pt with significant drop on Hb from 11/16 to 11/17 noted.
[2017-11-19] MEDS: Famotidine 20 MG TAB PO SCH ×2 (10:42→21:52)
[2017-11-19] MEDS: Folic Acid 1 MG TAB PO SCH (10:42)
[2017-11-19] MEDS: Cyanocobalamin (Vitamin B-12) 1,000 MCG TAB PO SCH (10:42)
[2017-11-19 11:10] LABS: Hemoglobin 11.2 g/dL (14.0-18.0)
[2017-11-19] MEDS ORDERED: ePHEDrine/0.9% NaCl/PF SYRINGE 50 mg/10 ml ONE (11:24)
[2017-11-19] MEDS ORDERED: Lidocaine 1% PF 5 ML VIAL ONE (11:24)
[2017-11-19] MEDS ORDERED: Succinylcholine Chloride 20 MG/ML 10 ml SYRINGE FS ONE (11:24)
[2017-11-19] MEDS ORDERED: PROPOFOL 200 MG/20 ML VIAL ONE (11:24)
[2017-11-19] MEDS ORDERED: Ondansetron HCl/PF 4 MG/2 ML Vial ONE (11:24)
[2017-11-19] MEDS ORDERED: Dexamethasone 20 MG/5 ML VIAL ONE (11:24)
[2017-11-19] MEDS ORDERED: PHENYLEPHRINE-NS 100 MCG/ML 10 ML SYRINGE ONE (11:24)
--- NOTE | 2017-11-19 13:06 | OP ---
DATE OF PROCEDURE: 11/19/2017. PROCEDURE: Esophagogastroduodenoscopy with control of hemorrhage, dilation with esophageal balloon. INDICATION FOR PROCEDURE: Melena, anemia. DESCRIPTION OF PROCEDURE: After the risks and benefits of the procedure were explained to the patien t including risks of bleeding, infection, perforation, reactions to anesthesia, aspiration and/or francisco n, informed consent was obtained. The patient was then taken to the endoscopy suite where general an esthesia was administered with endotracheal tube intubation. Once the patient was adequately sedated , paralyzed and intubated, he was maneuvered into the left lateral position in preparation for the pr ocedure. The standard gastroscope was then introduced into the mouth with intubation of the esophagu s, stomach, the proximal small intestine with the findings listed below. The patient tolerated the p rocedure well with no immediate perioperative complications. After the procedure was complete, the p atient was transferred to PACU in satisfactory condition. FINDINGS: Esophagus: Normal appearing mucosa was seen in the proximal and mid esophagus; however, in the dista l esophagus at approximately 36 cm past the incisors, there was a higher grade esophageal stricture t hat was initially unable to be traversed with the standard gastroscope. Using a CRE TTS esophageal b alloon, it was introduced into the esophageal lumen and placed just beyond the stricture itself. The balloon was then inflated to 8 mm and then to 9 mm for successive dilation of the stricture. At 9 m m, the balloon was then retracted and the gastroscope was then successfully passed into the gastric l umen. There was no evidence of ulcerations, esophagitis or mass lesions within the distal esophagus. Stomach: Normal appearing mucosa was seen in the gastric cardia, fundus, body, greater curvature, an d incisura. However, two ulcerations were seen in the gastric antrum measuring approximately 3 mm an d 5 mm in size. The 3 mm ulcer was located at approximately 10 o'clock position in relation to the p ylorus. It was clean based with no high-risk stigmata of active or recent bleeding. However, the se cond ulcer measuring 5 mm was located at a 4-5 o'clock position in relation to the pylorus. This ulc eration had an adherent clot that were removed revealed a small visible vessel consistent with a high risk stigmata of recent bleeding. With this stigmata and risk of rebleeding, this was intervened up on with bipolar cauterization using a 10-[place] bipolar heater probe with successful hemostasis achie saba. Otherwise, there were no other abnormalities seen within the antrum. Duodenum: Normal appearing mucosa was seen in both the duodenal bulb and second portion of the duode num. There was no evidence of erosions, ulcerations, mass lesions or active/recent bleeding. IMPRESSION: 1. Two ulcerations seen in the gastric antrum measuring 3 mm and 5 mm in size. The 5 mm ulceration exhibited high risk stigmata of recent bleeding and was successfully intervened upon with bipolar cau terization. 2. Higher grade esophageal stricture at 36 cm past the incisors successfully dilated to 9 mm. RECOMMENDATIONS: 1. We would continue to trend H&H, transfuse as necessary to maintain an H&H of 7/. 2. We will continue to monitor clinically for signs of active gastrointestinal bleeding. 3. We would hold aspirin for at least the next 24 hours in an attempt to promote healing of the ovidio stacie ulceration and prevent further bleeding. However, given his recent cardiac catheterization and s tent placement, Plavix can be continued throughout this time. 4. We would monitor in the IMCU given the recent intervention done today and full anticoagulation wi th Plavix with increased risk of bleeding with both of these modalities. We will continue to follow. Please call with any questions.
--- NOTE | 2017-11-19 14:44 | PDOC.PN ---
- Subjective Encounter Start Date: 11/19/17 Encounter Start Time: 14:35 Subjective: f/u for GI bleed s/p EGD showing bleeding ulcer with cauterization. -: Received 2u PRBC's today for total of 4u. Feels ok overall. Nsg reports -: pt stable. - Objective Resuscitation Status: Resuscitation Status FULL:Full Resuscitation MAR Reviewed: Yes Vital Signs & Weight: Vital Signs (12 hours) Temp Pulse Resp BP BP Pulse Ox 11/19/17 08:00 100 11/19/17 05:53 100 11/19/17 05:15 97.9 F 83 18 117/45 L 100 11/19/17 04:48 104 H 112/55 L 11/19/17 04:44 99 102/49 L 11/19/17 04:27 94 95/53 L 11/19/17 03:35 98.4 F 79 19 132/75 94 L Weight Weight 143 lb 6.4 oz Most Recent Monitor Data Heart Rate from ECG 69 NIBP 130/61 I&O: 11/18/17 11/19/17 11/20/17 06:59 06:59 06:59 Intake Total 2830 1550 Output Total 100 2751 Balance 2730 -1201 Result Diagrams: 11/19/17 10:57 11/19/17 04:27 Additional Labs: Accuchecks 11/19/17 04:10 POC Glucose 186 H Laboratory Tests 11/18/17 11/18/17 11/19/17 05:51 20:06 04:27 Hgb 6.2 L 9.4 L 7.5 L Radiology Reviewed by me: Yes (EGD - + gastric ulcers, esophageal stricture) EKG Reviewed by me: Yes (Tele - SR with PAC's) Phys Exam - Physical Examination Constitutional: NAD HEENT: PERRLA, sclera anicteric, oral pharynx no lesions Neck: no nodes, no JVD, supple, full ROM Respiratory: no wheezing, no rales, no rhonchi, clear to auscultation bilateral S1, S2 Cardiovascular: RRR, no significant murmur, no rub Gastrointestinal: soft, non-tender, no distention, positive bowel sounds Musculoskeletal: no edema, pulses present Neurological: normal sensation, moves all 4 limbs Skin: no rash, normal turgor, cap refill <2 seconds Dx/Plan (1) Acute GI bleeding Code(s): K92.2 - GASTROINTESTINAL HEMORRHAGE, UNSPECIFIED Status: Acute Comment: Gastric ulcers as etiology s/p cauterization, serial H/H, PPI gtt (2) Acute blood loss anemia Code(s): D62 - ACUTE POSTHEMORRHAGIC ANEMIA Status: Acute Comment: s/p 4u total PRBC's, serial H/H (3) CAD (coronary artery disease) Code(s): I25.10 - ATHSCL HEART DISEASE OF [place] CORONARY ARTERY W/O ANG PCTRS Status: Chronic Comment: s/p PCI with stent placement, ASA continued but Plavix held, may need to watch closely for re-bleeding with dual anti-platelet therapy (4) CHF (NYHA class III, ACC/AHA stage C) Code(s): I50.9 - HEART FAILURE, UNSPECIFIED Status: Chronic Comment: Compensated currently, med mgmt - Plan PT/OT, social service worker, DVT proph w/SCDs Continue close monitoring for re-bleeding after cauterization -: Plavix on hold due to acute GI bleed -: Protonix gtt another 24-48h -: Clear liquids -: AM lab: CMP, CBC * .
[2017-11-19 17:09] LABS: Hemoglobin 10.6 g/dL (14.0-18.0)
[2017-11-19] MEDS: Gabapentin 100 MG CAP PO SCH (21:52)
[2017-11-19] MEDS: HYDROcodone/Acetaminophen 5/325 mg Tablet PO PRN (21:53)
[2017-11-19 23:16] LABS: Hemoglobin 10.1 g/dL (14.0-18.0)
[2017-11-20 05:45] LABS: #Eosinphils 0.1 thou/uL (0.0-0.7); #Lymphocytes 0.6 thou/uL (1.20-3.40); #Neutrophils 11.5 thou/uL (1.40-6.50); %Eosinophils 0.7 % (0.0-10.0); %Lymphocytes 4.9 % (21.0-51.0); %Monocytes 7.3 % (0.0-10.0); %Neutrophils 87.1 % (42.0-75.0); Hemoglobin 9.5 g/dL (14.0-18.0); Mean Corpuscular HGB CONC 33.7 g/dL (32.0-36.0); Mean Corpuscular Hemoglobin 30.4 pg (27.0-31.0); Mean Corpuscular Volume 90.4 fL (78.0-98.0); Mean Platelet Volume 7.5 fL (7.4-10.4); Platelet Count 155 thou/uL (130-400); RBC Distribution Width 16.2 % (11.5-14.5); Red Blood Cell (RBC) Count 3.13 mill/uL (4.70-6.10); White Blood Cell (WBC) Count 13.2 thou/uL (4.8-10.8)
[2017-11-20 05:46] LABS: Hemoglobin 9.6 g/dL (14.0-18.0)
[2017-11-20 06:04] LABS: ALT (SGPT) Less than 7 U/L (8-55); AST (SGOT) 10 U/L (5-34); Albumin 2.9 g/dL (3.4-4.8); Alkaline Phosphatase 38 U/L (40-150); Anion Gap 10 mmol/L (10-20); BUN (Urea Nitrogen) 26 mg/dL (8.4-25.7); Bilirubin, Total 1.4 mg/dL (0.2-1.2); Calc. Creatinine Clearance 73 mL/min (70-130); Calcium 8.3 mg/dL (7.8-10.44); Carbon Dioxide 22 mmol/L (23-31); Chloride 109 mmol/L (98-107); Estimated GFR-MDRD Greater than 90; Globulin 1.8 g/dL (2.4-3.5); Glucose 126 mg/dL (83-110); Protein, Total 4.7 g/dL (5.8-8.1); Sodium 137 mmol/L (136-145)
[2017-11-20] MEDS: HYDROcodone/Acetaminophen 5/325 mg Tablet PO PRN ×4 (06:04→21:42)
[2017-11-20] MEDS: Cyanocobalamin (Vitamin B-12) 1,000 MCG TAB PO SCH (09:34)
[2017-11-20] MEDS: Clopidogrel Bisulfate 75 MG TAB PO SCH (09:34)
[2017-11-20] MEDS: Folic Acid 1 MG TAB PO SCH (09:34)
[2017-11-20] MEDS: Famotidine 20 MG TAB PO SCH (09:34)
--- NOTE | 2017-11-20 09:42 | PRG ---
DATE OF SERVICE: 11/20/2017 SUBJECTIVE: Mr. Padron feels okay today. He still has a John catheter in place. There is no ches t pain or pressure. PHYSICAL EXAMINATION: VITAL SIGNS: Blood pressure is 122/49, pulse is 80. LUNGS: Clear. CARDIAC: Normal S1, normal S2. ABDOMEN: Soft, nontender. EXTREMITIES: There is minimal edema. ASSESSMENT: 1. Status post percutaneous stent implantation, diagonal branch. 2. Gastrointestinal bleed, status post cautery. 3. Anemia. PLAN: 1. The aspirin is on hold today, to resume tomorrow. 2. ? Discontinue John catheter soon. 3. Okay with me to transfer to telemetry out of the intermediate care.
[2017-11-20] MEDS ORDERED: Aspirin 81 mg Enteric Coated Tablet PO SCH (10:15)
--- NOTE | 2017-11-20 10:48 | PQF ---
DATE: 11-20-17 ATTN: DR. NICOLE GRUBER Please exercise your independent, professional judgment in responding to the clarification form. Clinical indicators are provided on the bottom of this form for your review Please check appropriate box(s): HEART FAILURE: A. TYPE: [ ] Systolic / HFrEF [ x ] Diastolic / HFpEF [ ] Combined Systolic / Diastolic B. ACUITY [ ] Acute [ ] Acute on Chronic [ x ] Chronic [ ] Other diagnosis [ ] Unable to determine In addition, please specify: Present on Admission (POA): [ x ] Yes [ ] No [ ] Unable to determine For continuity of documentation, please document condition throughout progress notes and discharge summary. Thank You. CLINICAL INDICATORS - SIGNS / SYMPTOMS / LABS ECHO 11-16-17: Ejection Fraction = 55-60 % ER DX: DYSPNEA BNP: 11-15-17: 148.5 H&P: DYSPNEA. CONGESTIVE HEART FAILURE, CURRENTLY THE PATIENT IS EUVOLEMIC CONSULT NOTE DR. MOULTON 11-16-17: IT APPEARS HE HAS DIASTOLIC HEART FAILURE, LIKELY ACUTE ON CHRONIC, MAY BE PRECIPITATED BY ANEMIA. RISKS: H&P: HX OF HTN, CAD, CABG, HTN, CVA TREATMENTS: MAR: LASIX 11-18-17 CARDIAC /TELEMETRY MONITORING ER: 90% ON 2L NC (This form is maintained as a part of the permanent medical record) 2014 [email or web address]. All Rights Reserved BERYL [email or web address] Office: [phone] [facility]
[2017-11-20 10:59] LABS: Hemoglobin 9.8 g/dL (14.0-18.0)
[2017-11-20 17:14] LABS: Hemoglobin 9.5 g/dL (14.0-18.0)
--- NOTE | 2017-11-20 17:22 | PDOC.PN ---
- Subjective Encounter Start Date: 11/20/17 Encounter Start Time: 17:15 Subjective: f/u for GI bleed s/p cauterization and total 4u PRBC's. Feels good -: today, H/H stable. Eating ok. - Objective Resuscitation Status: Resuscitation Status FULL:Full Resuscitation MAR Reviewed: Yes Vital Signs & Weight: Vital Signs (12 hours) Temp Pulse Resp BP Pulse Ox 11/20/17 15:32 96.8 F L 84 19 102/36 L 100 11/20/17 11:29 98.2 F 80 19 115/37 L 100 11/20/17 08:00 100 11/20/17 07:28 98.6 F 80 18 121/47 L 100 Weight Weight 143 lb 6.4 oz Most Recent Monitor Data Heart Rate from ECG 69 NIBP 130/61 I&O: 11/19/17 11/20/17 11/21/17 06:59 06:59 06:59 Intake Total 1550 200 Output Total 2751 1000 Balance -1201 -800 Result Diagrams: 11/20/17 17:03 11/20/17 05:08 EKG Reviewed by me: Yes (Tele - intermittent pacing) Phys Exam - Physical Examination Constitutional: NAD HEENT: PERRLA, sclera anicteric, oral pharynx no lesions Neck: no nodes, no JVD, supple, full ROM Respiratory: no wheezing, no rales, no rhonchi, clear to auscultation bilateral S1, S2 Cardiovascular: RRR, no significant murmur, no rub, gallop Gastrointestinal: soft, non-tender, no distention, positive bowel sounds Musculoskeletal: no edema, pulses present Neurological: normal sensation, moves all 4 limbs Psychiatric: normal affect, A&O x 3 Skin: no rash, normal turgor, cap refill <2 seconds Dx/Plan (1) Acute GI bleeding Code(s): K92.2 - GASTROINTESTINAL HEMORRHAGE, UNSPECIFIED Status: Acute Comment: Gastric ulcers as etiology s/p cauterization, serial H/H, PPI gtt with transition to po PPI in 24h (2) Acute blood loss anemia Code(s): D62 - ACUTE POSTHEMORRHAGIC ANEMIA Status: Acute Comment: s/p 4u total PRBC's, serial H/H (3) CAD (coronary artery disease) Code(s): I25.10 - ATHSCL HEART DISEASE OF [place] CORONARY ARTERY W/O ANG PCTRS Status: Chronic Comment: s/p PCI with stent placement, ASA continued but Plavix held, may need to watch closely for re-bleeding with dual anti-platelet therapy (4) CHF (NYHA class III, ACC/AHA stage C) Code(s): I50.9 - HEART FAILURE, UNSPECIFIED Status: Chronic Comment: Diastolic, Compensated currently, med mgmt, no exacerbation - Plan PT/OT, social media manager, out of bed/ambulate, DVT proph w/SCDs Stable currently -: Continue Protonix gtt another 24h then transition to po -: OOB/ambulate with PT -: ASA/Plavix in next 24h -: AM lab: H/H * Likely home in 24-48h
[2017-11-20] MEDS ORDERED: Clopidogrel Bisulfate 75 MG TAB ONE (19:42)
--- NOTE | 2017-11-20 19:42 | PRG ---
DATE OF SERVICE: 11/20/2017 SUBJECTIVE: The patient feels well. Denies any abdominal pain, nausea, or vomiting. There is no ov ert bleeding such as melena or hematochezia. He is tolerating regular diet without any issue. OBJECTIVE: VITAL SIGNS: Temperature is 96.8, blood pressure 102/36, pulse of 84. GENERAL: He is alert, conversant. Does not appear in any distress. HEENT: Shows anicteric sclerae. CARDIOVASCULAR: Shows normal S1, S2. Regular rate and rhythm. CHEST: Shows breath sounds. ABDOMEN: Protuberant, but no tympany. He has active bowel sounds. There is no tenderness. EXTREMITIES: Shows no edema. LABORATORY DATA: Hemoglobin is 9.5, which is unchanged from 14 hours ago. WBC is 13.2, platelet cou nt of 155. Electrolytes within normal range, creatinine 0.79. ASSESSMENT: 1. Status post upper gastrointestinal bleed from gastric ulcer with visible vessel, status post caut erization yesterday. Clinically, doing well without any signs of bleeding. His blood count has marcelo ined stable. 2. Acute on chronic anemia, gastrointestinal blood loss, hemoglobin stable at 9.5. Status post 4 un its RBC transfusion. 3. Coronary artery disease, status post coronary stent placement. RECOMMENDATIONS: 1. We will change to p.o. pantoprazole 40 mg b.i.d. tomorrow. 2. Continue to monitor for any signs of rebleeding. Continue with aspirin and Plavix that was resta rted today. 3. We will follow.
[2017-11-20] MEDS: Rosuvastatin 5 MG TAB PO SCH (20:11)
[2017-11-20] MEDS: Tamsulosin HCl 0.4 MG CAP PO SCH (20:11)
[2017-11-20] MEDS: Gabapentin 100 MG CAP PO SCH (20:11)
[2017-11-21] MEDS: Zolpidem Tartrate 5 MG TAB PO PRN ×2 (01:41→21:13)
[2017-11-21 04:51] LABS: #Eosinphils 0.3 thou/uL (0.0-0.7); #Lymphocytes 0.7 thou/uL (1.20-3.40); #Monocytes 0.6 thou/uL (0.11-0.59); #Neutrophils 7.3 thou/uL (1.40-6.50); %Eosinophils 3.9 % (0.0-10.0); %Lymphocytes 7.3 % (21.0-51.0); %Monocytes 7.1 % (0.0-10.0); %Neutrophils 81.7 % (42.0-75.0); Hemoglobin 8.9 g/dL (14.0-18.0); Mean Corpuscular HGB CONC 33.6 g/dL (32.0-36.0); Mean Corpuscular Hemoglobin 30.7 pg (27.0-31.0); Mean Corpuscular Volume 91.3 fL (78.0-98.0); Mean Platelet Volume 7.5 fL (7.4-10.4); Platelet Count 140 thou/uL (130-400); RBC Distribution Width 16.6 % (11.5-14.5); White Blood Cell (WBC) Count 8.9 thou/uL (4.8-10.8)
[2017-11-21 05:17] LABS: ALT (SGPT) 8 U/L (8-55); AST (SGOT) 9 U/L (5-34); Albumin 2.9 g/dL (3.4-4.8); Alkaline Phosphatase 43 U/L (40-150); Anion Gap 9 mmol/L (10-20); BUN (Urea Nitrogen) 29 mg/dL (8.4-25.7); Bilirubin, Total 1.1 mg/dL (0.2-1.2); Calc. Creatinine Clearance 69 mL/min (70-130); Calcium 8.3 mg/dL (7.8-10.44); Carbon Dioxide 23 mmol/L (23-31); Chloride 106 mmol/L (98-107); Estimated GFR-MDRD 89; Globulin 1.9 g/dL (2.4-3.5); Glucose 110 mg/dL (83-110); Potassium 3.8 mmol/L (3.5-5.1); Protein, Total 4.8 g/dL (5.8-8.1); Sodium 134 mmol/L (136-145)
[2017-11-21] MEDS: Aspirin 81 mg Enteric Coated Tablet PO SCH (08:49)
[2017-11-21] MEDS: HYDROcodone/Acetaminophen 5/325 mg Tablet PO PRN ×3 (08:49→21:13)
[2017-11-21] MEDS: Clopidogrel Bisulfate 75 MG TAB PO SCH (08:49)
[2017-11-21] MEDS: Cyanocobalamin (Vitamin B-12) 1,000 MCG TAB PO SCH (08:49)
[2017-11-21] MEDS: Folic Acid 1 MG TAB PO SCH (08:49)
--- NOTE | 2017-11-21 09:21 | PRG ---
DATE OF SERVICE: 11/21/2017. SUBJECTIVE: Mr. Padron feels well, but he has not really been up and out of bed much. PHYSICAL EXAMINATION: VITAL SIGNS: Blood pressure 125/44, pulse 83 regular. LUNGS: Clear. CARDIAC: Normal S1, normal S2. ABDOMEN: Soft, nontender. LABORATORY DATA: Hemoglobin is 8.9, slightly low. ASSESSMENT: 1. Recent intracoronary stent implantation. 2. Gastrointestinal bleed. PLAN: 1. Check CBC tomorrow. If stable, probably okay to go home. 2. Discontinue John catheter if okay with the Sounds.
--- NOTE | 2017-11-21 10:48 | PDOC.PN ---
- Subjective Encounter Start Date: 11/21/17 Encounter Start Time: 10:35 Subjective: f/u for GI bleed due gastric ulcers s/p cauterization and 4u PRBC's -: Remains on Protonix and feels good. Tolerating po intake. Not -: ambulating currently. - Objective Resuscitation Status: Resuscitation Status FULL:Full Resuscitation MAR Reviewed: Yes Vital Signs & Weight: Vital Signs (12 hours) Temp Pulse Resp BP Pulse Ox 11/21/17 07:48 100 11/21/17 07:40 98.0 F 83 16 125/44 L 100 11/21/17 04:00 98.4 F 70 15 135/54 L 100 11/21/17 00:00 98.1 F 64 17 109/41 L 100 Weight Weight 143 lb 6.4 oz Most Recent Monitor Data Heart Rate from ECG 69 NIBP 130/61 I&O: 11/20/17 11/21/17 11/22/17 06:59 06:59 06:59 Intake Total 200 310 Output Total 1000 750 Balance -800 -440 Result Diagrams: 11/21/17 03:58 11/21/17 03:58 Additional Labs: Laboratory Tests 11/18/17 11/18/17 11/19/17 05:51 20:06 04:27 Hgb 6.2 L 9.4 L 7.5 L 11/20/17 17:03 Hgb 9.5 L EKG Reviewed by me: Yes (Tele - intermittent pacing) Phys Exam - Physical Examination Constitutional: NAD HEENT: PERRLA, sclera anicteric, oral pharynx no lesions Neck: no nodes, no JVD, supple, full ROM Respiratory: no wheezing, no rales, no rhonchi, clear to auscultation bilateral S1, S2 Cardiovascular: RRR, no significant murmur, no rub, gallop Gastrointestinal: soft, non-tender, no distention, positive bowel sounds Musculoskeletal: no edema, pulses present Neurological: normal sensation, moves all 4 limbs Psychiatric: A&O x 3 Skin: normal turgor, cap refill <2 seconds Dx/Plan (1) Acute GI bleeding Code(s): K92.2 - GASTROINTESTINAL HEMORRHAGE, UNSPECIFIED Status: Acute Comment: Gastric ulcers as etiology s/p cauterization, serial H/H, Protonix 40mg po BID (2) Acute blood loss anemia Code(s): D62 - ACUTE POSTHEMORRHAGIC ANEMIA Status: Acute Comment: s/p 4u total PRBC's, serial H/H (3) CAD (coronary artery disease) Code(s): I25.10 - ATHSCL HEART DISEASE OF [place] CORONARY ARTERY W/O ANG PCTRS Status: Chronic Comment: s/p PCI with stent placement, ASA/Plavix resumed, may need to watch closely for re-bleeding with dual anti-platelet therapy (4) CHF (NYHA class III, ACC/AHA stage C) Code(s): I50.9 - HEART FAILURE, UNSPECIFIED Status: Chronic Comment: Diastolic, Compensated currently, med mgmt, no exacerbation - Plan plan discussed w/ family, PT/OT, social sciences chair, out of bed/ambulate, DVT proph w/SCDs Stable overall -: OOB/ambulate with PT -: Change Protonix 40mg po BID -: Consider rehab vs HH with PT pending PT evaluation -: AM lab: CBC * .
[2017-11-21] MEDS: Gabapentin 100 MG CAP PO SCH (20:36)
[2017-11-21] MEDS: Rosuvastatin 5 MG TAB PO SCH (20:36)
[2017-11-21] MEDS: Tamsulosin HCl 0.4 MG CAP PO SCH (20:36)
--- NOTE | 2017-11-21 21:33 | PRG ---
DATE OF SERVICE: 11/21/2017 SUBJECTIVE: Mr. Padron is tolerating solid diet well. He has no abdominal pain. He has had no ove rt melena today. OBJECTIVE: VITAL SIGNS: Temperature is 98.6, pulse 77, blood pressure 114/39. GENERAL: He is in no acute distress, awake and alert. ABDOMEN: Soft, nontender, nondistended. Bowel sounds are present. LABORATORY DATA: Hemoglobin is 8.9. IMPRESSION: 1. Acute gastrointestinal bleed secondary to gastric ulcer. He has been taking naproxen prior to ad mission. 2. Anemia of acute blood loss. 3. Coronary artery disease status post stent, now on aspirin and clopidogrel. RECOMMENDATIONS: 1. Pantoprazole 40 mg twice daily over the next month. He could then back off to once daily. He st ates that he had not been taking a proton pump inhibitor prior to admission and that he had been taki ng regular NSAIDs. 2. He has been advised to avoid further NSAID use. 3. It should be okay to continue the aspirin 81 mg daily as the cardiac benefits likely outweigh the GI risks as long as he maintains proton pump inhibitor. 4. I will sign off. Please call if GI can be of assistance.
[2017-11-22 04:21] LABS: #Eosinphils 0.2 thou/uL (0.0-0.7); #Lymphocytes 0.6 thou/uL (1.20-3.40); #Monocytes 0.8 thou/uL (0.11-0.59); #Neutrophils 7.1 thou/uL (1.40-6.50); %Eosinophils 2.7 % (0.0-10.0); %Lymphocytes 6.9 % (21.0-51.0); %Monocytes 9.2 % (0.0-10.0); %Neutrophils 81.2 % (42.0-75.0); Hemoglobin 9.3 g/dL (14.0-18.0); Mean Corpuscular Hemoglobin 30.8 pg (27.0-31.0); Mean Corpuscular Volume 93.4 fL (78.0-98.0); Mean Platelet Volume 7.6 fL (7.4-10.4); Platelet Count 137 thou/uL (130-400); RBC Distribution Width 17.7 % (11.5-14.5); Red Blood Cell (RBC) Count 3.02 mill/uL (4.70-6.10); White Blood Cell (WBC) Count 8.7 thou/uL (4.8-10.8)
[2017-11-22] MEDS: HYDROcodone/Acetaminophen 5/325 mg Tablet PO PRN ×2 (09:14→19:24)
[2017-11-22] MEDS: Clopidogrel Bisulfate 75 MG TAB PO SCH (09:14)
[2017-11-22] MEDS: Aspirin 81 mg Enteric Coated Tablet PO SCH (09:15)
[2017-11-22] MEDS: Folic Acid 1 MG TAB PO SCH (09:15)
[2017-11-22] MEDS: Cyanocobalamin (Vitamin B-12) 1,000 MCG TAB PO SCH (09:15)
--- NOTE | 2017-11-22 11:34 | PRG ---
DATE OF SERVICE: 11/22/2017 HISTORY: Mr. Willams states he feels just a little better, just feels very weak. PHYSICAL EXAMINATION: VITAL SIGNS: His blood pressure is 110/49, pulse 85. LUNGS: Clear. CARDIAC: Normal S1 and S2. ABDOMEN: Soft, nontender. EXTREMITIES: No edema. : The patient has to void very frequently relatively small amounts. ASSESSMENT: 1. Coronary artery disease, status post recent drug-coated stent in the diagonal branch. 2. Gastrointestinal bleed related to indomethacin. He is now off the indomethacin. 3. Iron deficiency. He did receive intravenous iron during this admission as he had a very low ferr itin level. 4. Prostatism. PLAN: 1. We will do a bladder scan to see if he is emptying his bladder adequately. 2. He is on aspirin and Plavix, aspirin 81 mg a day. 3. He is on proton pump inhibitors. 4. He is on Rosuvastatin and tamsulosin. 5. If he has significant urinary retention he may need to urologic consult, may need a John placed and a urologic consult.
--- NOTE | 2017-11-22 18:52 | PDOC.PN ---
- Subjective Encounter Start Date: 11/22/17 Encounter Start Time: 18:51 Pt seen for followup re: GI bleed. Denies chest pain, shortness of breath, fevers or chills. - Objective Resuscitation Status: Resuscitation Status FULL:Full Resuscitation MAR Reviewed: Yes Vital Signs & Weight: Vital Signs (12 hours) Temp Pulse Pulse Pulse Resp BP BP 11/22/17 10:59 98.5 F 95 18 11/22/17 10:47 74 86 138/50 L 120/51 L 11/22/17 07:50 11/22/17 07:27 97.8 F 85 18 BP Pulse Ox Pulse Ox Pulse Ox 11/22/17 10:59 120/51 L 100 11/22/17 10:47 95 100 11/22/17 07:50 99 11/22/17 07:27 110/49 L 100 Weight Weight 143 lb 6.4 oz Most Recent Monitor Data Heart Rate from ECG 69 NIBP 130/61 I&O: 11/21/17 11/22/17 11/23/17 06:59 06:59 06:59 Intake Total 310 240 Output Total 750 930 Balance -440 -690 Result Diagrams: 11/23/17 03:24 11/23/17 03:24 EKG Reviewed by me: Yes (Tele: NSR) Phys Exam - Physical Examination Constitutional: NAD HEENT: moist MMs Neck: supple Respiratory: clear to auscultation bilateral Cardiovascular: RRR Gastrointestinal: soft Neurological: moves all 4 limbs Psychiatric: normal affect Skin: no rash Dx/Plan (1) GI bleed Code(s): K92.2 - GASTROINTESTINAL HEMORRHAGE, UNSPECIFIED Status: Acute Comment: hemoglobin stable, continue PPI BID (2) CAD (coronary artery disease) Code(s): I25.10 - ATHSCL HEART DISEASE OF [place] CORONARY ARTERY W/O ANG PCTRS Status: Chronic Comment: s/p PCI with stent placement, ASA/Plavix resumed (3) Dyslipidemia Code(s): E78.5 - HYPERLIPIDEMIA, UNSPECIFIED Status: Chronic Comment: continue Crestor (4) Hypertension Code(s): I10 - ESSENTIAL (PRIMARY) HYPERTENSION Status: Chronic Comment: controlled - Plan * . Review of Systems - Review of Systems Respiratory: negative: Cough, Shortness of Breath, SOB with Excertion, Pleuritic Pain, Wheezing Cardiovascular: negative: chest pain, palpitations, orthopnea, paroxysmal nocturnal dyspnea, edema, light headedness - Medications/Allergies Allergies/Adverse Reactions: Allergies Allergy/AdvReac Type Severity Reaction Status Date / Time No Known Drug Allergies Allergy Verified 11/15/17 17:32 Medications: Current Medications Acetaminophen (Tylenol) 650 mg PO Q4H PRN PRN Reason: Headache/Fever/Mild Pain (1-3) Hydrocodone Bitart/Acetaminophen ([place] 5/325) 1 tab PO Q4H PRN PRN Reason: Moderate Pain (4-6) Last Admin: 11/22/17 09:14 Dose: 1 tab Albuterol/Ipratropium (Duoneb) 3 ml NEB [id number] PRN PRN Reason: SOB &/or Wheezing Alprazolam (Xanax) 0.5 mg PO HSPRN PRN PRN Reason: Anxiety/Insomnia Last Admin: 11/18/17 21:50 Dose: 0.5 mg Artificial Tears (Tears Renewed 15ml Bottle) 0 drop EA EYE PRN PRN PRN Reason: Dry Eyes Aspirin (Ecotrin) 81 mg PO DAILY [facility] Last Admin: 11/22/17 09:15 Dose: 81 mg Bisacodyl (Dulcolax) 10 mg PO DAILYPRN PRN PRN Reason: Constipation Clopidogrel Bisulfate (Plavix) 75 mg PO DAILY [facility] Last Admin: 11/22/17 09:14 Dose: 75 mg Cyanocobalamin (Vitamin B-12) 1,000 mcg PO DAILY [facility] Last Admin: 11/22/17 09:15 Dose: 1,000 mcg Cyclobenzaprine HCl (Flexeril) 10 mg PO TID PRN PRN Reason: Muscle Spasm Folic Acid (Folvite) 1 mg PO DAILY [facility] Last Admin: 11/22/17 09:15 Dose: 1 mg Gabapentin (Neurontin) 100 mg PO HS [facility] Last Admin: 11/21/17 20:36 Dose: 100 mg Guaifenesin (Robitussin Sf) 200 mg PO Q4H PRN PRN Reason: Cough Hydralazine HCl (Apresoline) 10 mg SLOW IVP Q4H PRN PRN Reason: Systolic BP > 180 Loperamide HCl (Imodium) 2 mg PO PRN PRN PRN Reason: Diarrhea/Loose Stools Loratadine (Claritin) 10 mg PO DAILYPRN PRN PRN Reason: Sinus Symptoms Mineral Oil/White Petrolatum (Eucerin Cream) 0 gm TOP BIDPRN PRN PRN Reason: Dry Skin Nitroglycerin (Nitrostat) 0.4 mg SL Q5MIN PRN PRN Reason: Chest Pain Last Admin: 11/17/17 00:39 Dose: 0.4 mg Nitroglycerin (Nitrostat) 0.4 mg SL Q5MIN PRN PRN Reason: Chest Pain Olmesartan (Benicar) 10 mg PO DAILY [facility] Last Admin: 11/22/17 09:15 Dose: 10 mg Ondansetron HCl (Zofran Odt) 4 mg PO Q6H PRN PRN Reason: Nausea/Vomiting Ondansetron HCl (Zofran) 4 mg IVP Q6H PRN PRN Reason: Nausea/Vomiting Last Admin: 11/16/17 13:00 Dose: 4 mg Pantoprazole Sodium (Protonix) 40 mg PO BID [facility] Last Admin: 11/22/17 09:15 Dose: 40 mg Phenol (Chloraseptic [place] 180 Ml Bot) 0 ml PO PRN PRN PRN Reason: Sore Throat Rosuvastatin Calcium (Crestor) 5 mg PO HS [facility] Last Admin: 11/21/17 20:36 Dose: 5 mg Senna/Docusate Sodium (Senokot S) 2 tab PO BID PRN PRN Reason: Constipation Sodium Chloride ([place] Nasal [place] 0.65%) 0 ml EA NARE QIDPRN PRN PRN Reason: Nasal Congestion Sodium Chloride (Flush - Normal Saline) 10 ml IVF Q12HR [facility] Last Admin: 11/22/17 09:15 Dose: 10 ml Sodium Chloride (Flush - Normal Saline) 10 ml IVF PRN PRN PRN Reason: Saline Flush Last Admin: 11/16/17 13:01 Dose: 10 ml Tamsulosin HCl (Flomax) 0.4 mg PO 1999 [facility] Last Admin: 11/21/17 20:36 Dose: 0.4 mg Zolpidem Tartrate (Ambien) 5 mg PO HSPRN PRN PRN Reason: Insomnia Last Admin: 11/21/17 21:13 Dose: 5 mg
[2017-11-22] MEDS: Tamsulosin HCl 0.4 MG CAP PO SCH (20:21)
[2017-11-22] MEDS: Gabapentin 100 MG CAP PO SCH (20:21)
[2017-11-22] MEDS: Rosuvastatin 5 MG TAB PO SCH (20:21)
[2017-11-22] MEDS: Atenolol 25 MG TAB PO SCH (20:21)
--- NOTE | 2017-11-22 21:08 | DIS ---
DATE OF ADMISSION: 11/15/2017 DATE OF DISCHARGE: 11/22/2017 PRIMARY CARE PROVIDER: Vijay Fields M.D. DISCHARGE DIAGNOSES: 1. Acute blood loss anemia. 2. Acute gastrointestinal bleed. 3. Coronary artery disease. 4. Gastric ulcers. 5. Esophageal stricture. 6. Chronic diastolic heart failure. 7. Physical deconditioning. CONSULTATIONS DURING THIS HOSPITALIZATION: Cardiology, Dr. Waite and Gastroenterology, Dr. Ivy. CONDITION OF PATIENT AT THE TIME OF DISCHARGE: Stable. I assessed Mr. Padron on the day of dischar . He denies any chest pain or shortness of breath. Vital signs are stable. S1 and S2 are heard, regular. Lungs are clear to auscultation bilaterally. DISCHARGE MEDICATIONS: Aspirin 81 mg daily, Plavix 75 mg daily, atenolol 25 mg 2 times a day, Cresto r 5 mg at bedtime, Flomax 0.4 mg daily, vitamin B12 1000 mcg daily, folic acid 1 mg daily, gabapentin 100 mg at bedtime, Benicar 10 mg daily, Protonix 40 mg 2 times a day, Xanax 0.5 mg at bedtime as nee ded, torsemide 20 mg daily, Flexeril 10 mg 3 times a day as needed, [place] 5/325 mg every 4 hours as n eeded, DuoNebs 3 minutes every 6 hours as needed, and Ambien 5 mg at bedtime as needed. HOSPITAL COURSE: Mr. Padron is a pleasant 76-year-old gentleman, who was admitted to [facility] on 11/15/2017, for shortness of breath. Please refer to Dr. Mcqueen's history an d physical note dated 11/15/2017 for further details. He had a nuclear stress test on 11/16/2017, wh ich was a positive stress test with evidence of reversible ischemia. He was seen by Cardiology Servi yvonne. On 11/17/2017, he underwent a cardiac catheterization. He was found to have severe single vesse l disease and had a drug-eluting stent placed. His hemoglobin dropped during this hospitalization. Fecal occult blood test was positive. He was se en by Gastroenterology Service. Aspirin was on hold, but Plavix was continued. He had EGD and was f ound to have 2 ulcerations in the gastric antrum measuring 3 mm and 5 mm in size. The 5 mm ulceratio n exhibited high risk stigmata of recent bleeding and was successfully intervened with bipolar cauter ization. He also had a higher grade esophageal stricture at 36 cm past incisors, which was successfu lly dilated to 9 mm. His hemoglobin continued to be stable. He also became physically deconditioned during this hospitalization. He is being discharged to [facility] for further management. On 11/21/2017, he had sodium 134, potassium 3.8, creatinine 0.84. On 11/22/2017, he has white count 8700, hemoglobin 9.3, and platelet count 137,000. He had 3 units packed RBC transfusion during this hospitalization. Many thanks for allowing me to participate in your patient's care. Please feel free to contact me wi th any questions or concerns. DISCHARGE DESTINATION: [facility]. TOTAL AMOUNT OF TIME SPENT COORDINATING THIS DISCHARGE: 33 minutes.
[2017-11-22] MEDS: Zolpidem Tartrate 5 MG TAB PO PRN (23:51)
[2017-11-23 03:37] LABS: #Eosinphils 0.2 thou/uL (0.0-0.7); #Lymphocytes 0.6 thou/uL (1.20-3.40); #Monocytes 0.7 thou/uL (0.11-0.59); %Lymphocytes 7.6 % (21.0-51.0); %Monocytes 8.9 % (0.0-10.0); %Neutrophils 80.5 % (42.0-75.0); Hemoglobin 9.4 g/dL (14.0-18.0); Mean Corpuscular Hemoglobin 30.7 pg (27.0-31.0); Mean Platelet Volume 7.5 fL (7.4-10.4); Platelet Count 156 thou/uL (130-400); RBC Distribution Width 17.3 % (11.5-14.5); Red Blood Cell (RBC) Count 3.06 mill/uL (4.70-6.10); White Blood Cell (WBC) Count 7.5 thou/uL (4.8-10.8)
[2017-11-23 03:53] LABS: Anion Gap 10 mmol/L (10-20); BUN (Urea Nitrogen) 20 mg/dL (8.4-25.7); Calc. Creatinine Clearance 69 mL/min (70-130); Calcium 8.7 mg/dL (7.8-10.44); Carbon Dioxide 24 mmol/L (23-31); Chloride 104 mmol/L (98-107); Estimated GFR-MDRD 89; Glucose 117 mg/dL (83-110); Potassium 4.2 mmol/L (3.5-5.1); Sodium 134 mmol/L (136-145)
[2017-11-23] MEDS: Cyanocobalamin (Vitamin B-12) 1,000 MCG TAB PO SCH (09:19)
[2017-11-23] MEDS: Aspirin 81 mg Enteric Coated Tablet PO SCH (09:19)
[2017-11-23] MEDS: Folic Acid 1 MG TAB PO SCH (09:19)
[2017-11-23] MEDS: Clopidogrel Bisulfate 75 MG TAB PO SCH (09:19)
[2017-11-23] MEDS: Atenolol 25 MG TAB PO SCH ×2 (09:19→20:29)
[2017-11-23] MEDS: Torsemide 20 MG TAB PO SCH (09:20)
[2017-11-23] MEDS: HYDROcodone/Acetaminophen 5/325 mg Tablet PO PRN (12:37)
--- NOTE | 2017-11-23 18:18 | PDOC.PN ---
- Subjective Encounter Start Date: 11/23/17 Encounter Start Time: 18:16 Pt seen for followup re: GI bleed. Denies chest pain or shortness of breath. - Objective Resuscitation Status: Resuscitation Status FULL:Full Resuscitation MAR Reviewed: Yes Vital Signs & Weight: Vital Signs (12 hours) Temp Pulse Pulse Pulse Pulse Resp BP 11/23/17 15:22 99.0 F 68 16 11/23/17 13:21 86 90 81 117/52 L 11/23/17 11:05 97.0 F L 74 17 11/23/17 09:19 67 11/23/17 08:58 69 71 141/49 H 11/23/17 07:23 98.3 F 67 18 BP BP BP Pulse Ox Pulse Ox Pulse Ox 11/23/17 15:22 94/36 L 98 11/23/17 13:21 100/30 L 133/43 L 98 11/23/17 11:05 120/45 L 11/23/17 09:19 11/23/17 08:58 132/50 L 133/39 L 97 11/23/17 07:23 130/50 L 99 Weight Weight 143 lb 6.4 oz Most Recent Monitor Data Heart Rate from ECG 69 NIBP 130/61 I&O: 11/22/17 11/23/17 11/24/17 06:59 06:59 06:59 Intake Total 240 200 Output Total 930 580 Balance -690 -380 Result Diagrams: 11/24/17 03:21 11/24/17 03:21 EKG Reviewed by me: Yes (Tele: NSR) Phys Exam - Physical Examination Constitutional: NAD HEENT: moist MMs Neck: supple Respiratory: clear to auscultation bilateral Cardiovascular: RRR Gastrointestinal: soft Neurological: moves all 4 limbs Psychiatric: normal affect Dx/Plan (1) GI bleed Code(s): K92.2 - GASTROINTESTINAL HEMORRHAGE, UNSPECIFIED Status: Acute Comment: hemoglobin stable (2) Urinary retention Code(s): R33.9 - RETENTION OF URINE, UNSPECIFIED Status: Acute Comment: await urology input (3) CAD (coronary artery disease) Code(s): I25.10 - ATHSCL HEART DISEASE OF [place] CORONARY ARTERY W/O ANG PCTRS Status: Chronic Comment: s/p PCI with stent placement, continue ASA/Plavix (4) Dyslipidemia Code(s): E78.5 - HYPERLIPIDEMIA, UNSPECIFIED Status: Chronic Comment: on Crestor (5) Hypertension Code(s): I10 - ESSENTIAL (PRIMARY) HYPERTENSION Status: Chronic Comment: controlled - Plan * . Pt reportedly had difficulty ambulating when seen by PT, not safe for discharge home at this point. Therapy service will reassess him tomorrow. Review of Systems - Review of Systems Constitutional: weakness Cardiovascular: negative: chest pain, palpitations, orthopnea, paroxysmal nocturnal dyspnea, edema, light headedness Gastrointestinal: negative: Nausea, Vomiting, Abdominal Pain, Diarrhea, Constipation, Melena, Hematochezia - Medications/Allergies Allergies/Adverse Reactions: Allergies Allergy/AdvReac Type Severity Reaction Status Date / Time No Known Drug Allergies Allergy Verified 11/15/17 17:32 Medications: Current Medications Acetaminophen (Tylenol) 650 mg PO Q4H PRN PRN Reason: Headache/Fever/Mild Pain (1-3) Hydrocodone Bitart/Acetaminophen ([place] 5/325) 1 tab PO Q4H PRN PRN Reason: Moderate Pain (4-6) Last Admin: 11/23/17 12:37 Dose: 1 tab Albuterol/Ipratropium (Duoneb) 3 ml NEB [id number] PRN PRN Reason: SOB &/or Wheezing Alprazolam (Xanax) 0.5 mg PO HSPRN PRN PRN Reason: Anxiety/Insomnia Last Admin: 18 21:50 Dose: 0.5 mg Artificial Tears (Tears Renewed 15ml Bottle) 0 drop EA EYE PRN PRN PRN Reason: Dry Eyes Aspirin (Ecotrin) 81 mg PO DAILY [facility] Last Admin: 11/23/17 09:19 Dose: 81 mg Atenolol (Tenormin) 25 mg PO BID [facility] Last Admin: 11/23/17 09:19 Dose: 25 mg Bisacodyl (Dulcolax) 10 mg PO DAILYPRN PRN PRN Reason: Constipation Clopidogrel Bisulfate (Plavix) 75 mg PO DAILY [facility] Last Admin: 11/23/17 09:19 Dose: 75 mg Cyanocobalamin (Vitamin B-12) 1,000 mcg PO DAILY [facility] Last Admin: 11/23/17 09:19 Dose: 1,000 mcg Cyclobenzaprine HCl (Flexeril) 10 mg PO TID PRN PRN Reason: Muscle Spasm Folic Acid (Folvite) 1 mg PO DAILY [facility] Last Admin: 11/23/17 09:19 Dose: 1 mg Gabapentin (Neurontin) 100 mg PO [facility] Last Admin: 11/22/17 20:21 Dose: 100 mg Guaifenesin (Robitussin Sf) 200 mg PO Q4H PRN PRN Reason: Cough Hydralazine HCl (Apresoline) 10 mg SLOW IVP Q4H PRN PRN Reason: Systolic BP > 180 Loperamide HCl (Imodium) 2 mg PO PRN PRN PRN Reason: Diarrhea/Loose Stools Loratadine (Claritin) 10 mg PO DAILYPRN PRN PRN Reason: Sinus Symptoms Mineral Oil/White Petrolatum (Eucerin Cream) 0 gm TOP BIDPRN PRN PRN Reason: Dry Skin Nitroglycerin (Nitrostat) 0.4 mg SL Q5MIN PRN PRN Reason: Chest Pain Last Admin: 11/17/17 00:39 Dose: 0.4 mg Nitroglycerin (Nitrostat) 0.4 mg SL Q5MIN PRN PRN Reason: Chest Pain Olmesartan (Benicar) 10 mg PO DAILY [facility] Last Admin: 11/23/17 09:19 Dose: 10 mg Ondansetron HCl (Zofran Odt) 4 mg PO Q6H PRN PRN Reason: Nausea/Vomiting Ondansetron HCl (Zofran) 4 mg IVP Q6H PRN PRN Reason: Nausea/Vomiting Last Admin: 11/16/17 13:00 Dose: 4 mg Pantoprazole Sodium (Protonix) 40 mg PO BID [facility] Last Admin: 11/23/17 09:20 Dose: 40 mg Phenol (Chloraseptic [place] 180 Ml Bot) 0 ml PO PRN PRN PRN Reason: Sore Throat Rosuvastatin Calcium (Crestor) 5 mg PO [facility] Last Admin: 11/22/17 20:21 Dose: 5 mg Senna/Docusate Sodium (Senokot S) 2 tab PO BID PRN PRN Reason: Constipation Sodium Chloride ([place] Nasal [place] 0.65%) 0 ml EA NARE QIDPRN PRN PRN Reason: Nasal Congestion Sodium Chloride (Flush - Normal Saline) 10 ml IVF Q12HR [facility] Last Admin: 11/23/17 09:20 Dose: 10 ml Sodium Chloride (Flush - Normal Saline) 10 ml IVF PRN PRN PRN Reason: Saline Flush Last Admin: 11/16/17 13:01 Dose: 10 ml Tamsulosin HCl (Flomax) 0.4 mg PO 1999 [facility] Last Admin: 11/22/17 20:21 Dose: 0.4 mg Torsemide (Demadex) 20 mg PO DAILY [facility] Last Admin: 11/23/17 09:20 Dose: 20 mg Zolpidem Tartrate (Ambien) 5 mg PO HSPRN PRN PRN Reason: Insomnia Last Admin: 11/22/17 23:51 Dose: 5 mg
[2017-11-23] MEDS: Gabapentin 100 MG CAP PO SCH (20:22)
[2017-11-23] MEDS: Tamsulosin HCl 0.4 MG CAP PO SCH (20:22)
[2017-11-23] MEDS: Rosuvastatin 5 MG TAB PO SCH (20:23)
[2017-11-24 03:50] LABS: #Eosinphils 0.2 thou/uL (0.0-0.7); #Lymphocytes 0.4 thou/uL (1.20-3.40); #Monocytes 0.7 thou/uL (0.11-0.59); #Neutrophils 7.6 thou/uL (1.40-6.50); %Basophils 0.4 % (0.0-1.0); %Eosinophils 2.4 % (0.0-10.0); %Lymphocytes 4.6 % (21.0-51.0); %Monocytes 7.5 % (0.0-10.0); %Neutrophils 85.1 % (42.0-75.0); Hemoglobin 9.5 g/dL (14.0-18.0); Mean Corpuscular HGB CONC 33.5 g/dL (32.0-36.0); Mean Corpuscular Hemoglobin 30.9 pg (27.0-31.0); Mean Corpuscular Volume 92.4 fL (78.0-98.0); Platelet Count 157 thou/uL (130-400); RBC Distribution Width 17.4 % (11.5-14.5); Red Blood Cell (RBC) Count 3.06 mill/uL (4.70-6.10)
[2017-11-24 04:11] LABS: Anion Gap 12 mmol/L (10-20); BUN (Urea Nitrogen) 26 mg/dL (8.4-25.7); Calc. Creatinine Clearance 46 mL/min (70-130); Calcium 8.7 mg/dL (7.8-10.44); Carbon Dioxide 25 mmol/L (23-31); Chloride 98 mmol/L (98-107); Estimated GFR-MDRD 56; Glucose 125 mg/dL (83-110); Sodium 131 mmol/L (136-145)
[2017-11-24] MEDS: HYDROcodone/Acetaminophen 5/325 mg Tablet PO PRN (05:08)
[2017-11-24] MEDS ORDERED: Atenolol 25 MG TAB PO SCH ×2 (09:21→11:00)
--- NOTE | 2017-11-24 09:24 | CON ---
DATE OF CONSULTATION: 11/24/2017 REQUESTING PHYSICIAN: Hospitalist Service. REASON FOR CONSULTATION: Urinary retention. HISTORY OF PRESENT ILLNESS: Mr. Padron is a 76-year-old male who has had a prolonged hospitalizatio n after having a coronary stent placed and subsequently developed a GI bleed requiring intervention. The patient was initially evaluated for shortness of breath. He underwent a nuclear stress test whi ch demonstrated reversible ischemia. He had a stent placed. Subsequently, he had acute blood loss a nemia and had fecal occult blood test positive. He was evaluated by Gastroenterology and was found t o have 2 gastric ulcerations requiring intervention. The patient is currently awaiting placement. E vidently, he had a John catheter for the majority of his hospital stay. Intermittently throughout t he hospital course there was some gross hematuria noted. The patient denies any hematuria prior to t his. He states he has been on Flomax in the past, but has not taken recently. He has been taking it here as an inpatient. When his John catheter was removed he has been voiding small amounts and has been retaining between 150 and 300 mL of urine. The patient denies any suprapubic pressure. No alfred ss hematuria prior to John catheterization. No abdominal or flank pain. He has no prior history of urologic surgeries. He has no other complaints. REVIEW OF SYSTEMS: Full 12-point review of systems was performed and is negative other than that men tioned in the HPI. PAST MEDICAL HISTORY: 1. Coronary artery disease. 2. Gastric ulcers. 3. Esophageal stricture. 4. Chronic diastolic heart failure. 5. Benign prostatic hypertrophy. PAST SURGICAL HISTORY: 1. CABG. 2. History of ileostomy with subsequent reversal. FAMILY HISTORY: Noncontributory. SOCIAL HISTORY: The patient is and lives at home with his . No smoking history. MEDICATIONS: 1. Amlodipine. 2. Aspirin. 3. Atenolol. 4. Gabapentin. 5. Torsemide. 6. Flomax (although the patient states he has not been taking regularly at home). 7. Indomethacin. 8. Flexeril. 9. Crestor. 10. Xanax. ALLERGIES: No known drug allergies. PHYSICAL EXAMINATION: VITAL SIGNS: Temperature 98.4, pulse 71, respirations 18, blood pressure 111/33, oxygen saturation 9 8% on room air. GENERAL: He is alert and oriented x3, no apparent distress. HEENT: Normocephalic, atraumatic. NECK: Supple, no masses or lymphadenopathy. CARDIOVASCULAR: Regular rate and rhythm. PULMONARY: Breathing unlabored, no wheezing. ABDOMEN: Soft, nontender/nondistended, no masses or organomegaly, no suprapubic tenderness to palpat ion. No CVA tenderness. GENITOURINARY: Normal circumcised penis, meatal stenosis present, but meatus is patent, scrotum is n ormal, testes atrophied bilaterally, but otherwise palpably normal. EXTREMITIES: Warm and well perfused. No edema. NEUROLOGIC: No focal deficits. LABORATORY DATA: Hemoglobin 9.5, hematocrit 28.3. Sodium 131, potassium 4.0, chloride 98, bicarbona te 28, BUN 26, creatinine 1.26. ASSESSMENT AND PLAN: A 76-year-old male with elevated postvoid residual, likely secondary to benign prostatic hypertrophy. PLAN: I reviewed the natural history of incomplete bladder emptying with the patient in detail. I d iscussed potential etiologies including BPH. He may have some degree of meatal stenosis as well. At this point, the patient is voiding and has no discomfort associated with voiding. I discussed place ment of a John catheter, given his elevated postvoid residual, but the patient is hesitant to procee d with this at this time. He is emptying his bladder relatively well and should be able to avoid Fol ey catheterization at this time. Recommend b.i.d., tamsulosin. We will schedule patient for outpati ent followup with Urology within 2 weeks to ensure his postvoid residual is not worsening. Thank you for allowing me to participate in the care of this patient.
--- NOTE | 2017-11-24 09:40 | PRG ---
DATE OF SERVICE: 11/24/2017 Mr. Padron is feeling better. He is still relatively unstable when he gets up. No chest pain or shortness of breath. PHYSICAL EXAMINATION: VITAL SIGNS: Blood pressure at 7:30 from what the physical physical therapy resident told me was 96/38 but the mo re recent blood pressure systolic was in the mid 120s. LUNGS: Clear. CARDIAC: Normal S1 and S2. ABDOMEN: Soft, nontender. EXTREMITIES: There is no edema. ASSESSMENT: 1. Status post gastrointestinal bleed, stable with hemoglobin up to 9.5, hematocrit 28.3, no evidenc e of recurrent bleeding. 2. Recent stent implantation after found to have critical lesion in a diagonal branch. 3. Renal function worsens on torsemide and Benicar. PLAN: 1. Stop Benicar and torsemide. 2. Resume atenolol, but at a lower dose. 3. Continue aspirin and Plavix. 4. Continue low dose statin. He is at the maximum tolerated dose. 5. Okay to be released home whenever stable. 6. Prostatism. He is on tamsulosin.
[2017-11-24] MEDS: Clopidogrel Bisulfate 75 MG TAB PO SCH (10:39)
[2017-11-24] MEDS: Aspirin 81 mg Enteric Coated Tablet PO SCH (10:39)
[2017-11-24] MEDS: Folic Acid 1 MG TAB PO SCH (10:40)
[2017-11-24] MEDS: Cyanocobalamin (Vitamin B-12) 1,000 MCG TAB PO SCH (10:40)
[2017-11-24 11:17] VITALS: TEMP 97.7
[2017-11-24] MEDS: Atenolol 25 MG TAB PO SCH (11:17)
[2017-11-24] MEDS: Torsemide 20 MG TAB PO SCH (11:17)
[2017-11-24 13:55] VITALS: BP 135/49
--- NOTE | 2017-11-24 14:02 | DIS ---
PRIMARY CARE PHYSICIAN: Dr. Vijay Fields DATE OF ADMISSION: 11/15/2017 DATE OF DISCHARGE: 11/24/2017 DISCHARGE DIAGNOSES: 1. Acute blood loss anemia. 2. Acute gastrointestinal bleed. 3. Chronic diastolic heart failure. 4. Physical deconditioning. 5. Gastric ulcers. 6. Esophageal stricture. 7. Urinary retention. CONSULTATIONS DURING THIS HOSPITALIZATION: Cardiology, Dr. Waite; Gastroenterology, Dr. Ivy and U rology, Dr. Coon. Please note that this discharge summary is a follow up to a discharge summary dictated on 11/22/2017 in anticipation of discharge. The patient was not discharged home that day because the patient and h is family did not wish to go to inpatient rehab. The patient was reassessed by physical therapy. In patient rehabilitation is still the safest location for this patient. However, the patient and famil y insists that they do not want to go to rehab and they are choosing to go home with home health. CONDITION OF PATIENT AT THE TIME OF DISCHARGE: Stable. I saw Mr. Padron on the day of discharge. He denies any complaints. PHYSICAL EXAMINATION: VITAL SIGNS: Stable. CARDIOVASCULAR: S1 and S2 are heard, regular. LUNGS: Clear to auscultation bilaterally. DISCHARGE MEDICATIONS: His discharge medications as of 11/24/2017 are Flomax 0.4 mg 2 times a day, X anax 0.5 mg at bedtime as needed, aspirin 81 mg daily, Crestor 5 mg at bedtime, atenolol 25 mg daily, Plavix 75 mg daily, Flexeril 10 mg 3 times a day as needed, Neurontin 100 mg at bedtime, and Protoni x 40 mg 2 times a day. He is also being discharged home on torsemide 20 mg daily as needed for weigh t gain of greater than 3 pounds and tramadol 50 mg daily every 8 hours as needed. HOSPITAL COURSE: Please refer to my previous discharge summary dated 11/22/2017. The patient could not be discharged to rehab that day as mentioned above. He had low blood pressure and therefore aten olol was changed to 25 mg daily. Benicar was discontinued. He was also seen by Urology Service for urinary retention and had his Flomax dose increased to b.i.d. On the day of discharge, he has hemoglobin 9.5, white count 9000, platelet count 157,000. sodium 131 and creatinine 1.26. He is being discharged home with home health for OT, PT and nursing. Many thanks for allowing me to participate in your patient's care. Please feel free to contact me wi th any questions or concerns. DISCHARGE DESTINATION: Home. TOTAL AMOUNT OF TIME SPENT COORDINATING THIS DISCHARGE: 31 minutes.
[2017-11-25] MEDS ORDERED: Atenolol 25 MG TAB PO SCH (09:00)
--- NOTE | 2017-11-25 12:03 | EKG ---
Test Reason : Blood Pressure : / mmHG Vent. Rate : 091 BPM Atrial Rate : 091 BPM P-R Int : 152 ms QRS Dur : 108 ms QT Int : 408 ms P-R-T Axes : 046 -45 063 degrees QTc Int : 501 ms Atrial fibrillation Incomplete right bundle branch block Left anterior fascicular block Nonspecific ST and T wave abnormality Prolonged QT Abnormal ECG Confirmed by MALGORZATA AGARWAL, ANGELES Corrales ([id number]), loan expeditor KATE GARVIN ([id number]) on 11/25/2017 12:03:10 PM Referred By: Confirmed By:ANGELES MCGARRY MD
== END 2017-11-24 15:04 | disposition home health service (06) | DRG 246 ==
LOC: ERS 10:24 → 2SW 14:40 → OBSVTOIN 11-16 17:23 → 2NO 11-16 19:29 → IMCU/EMU 11-19 05:13
PROVIDERS: ADMIT Internal Medicine; ATTEND Internal Medicine
PROC: 027034Z Dilation of Coronary Artery, One Artery with Drug-eluting Intraluminal Device, Percutaneous Approach (ICD-10-PCS; principal; 2017-11-17)
PROC: 4A023N7 Measurement of Cardiac Sampling and Pressure, Left Heart, Percutaneous Approach (ICD-10-PCS; 2017-11-17)
PROC: B3101ZZ Fluoroscopy of Thoracic Aorta using Low Osmolar Contrast (ICD-10-PCS; 2017-11-17)
PROC: B2181ZZ Fluoroscopy of Left Internal Mammary Bypass Graft using Low Osmolar Contrast (ICD-10-PCS; 2017-11-17)
PROC: B2101ZZ Fluoroscopy of Single Coronary Artery using Low Osmolar Contrast (ICD-10-PCS; 2017-11-17)
PROC: B2121ZZ Fluoroscopy of Single Coronary Artery Bypass Graft using Low Osmolar Contrast (ICD-10-PCS; 2017-11-17)
PROC: 30233N1 Transfusion of Nonautologous Red Blood Cells into Peripheral Vein, Percutaneous Approach (ICD-10-PCS; 2017-11-19)
PROC: 0W3P8ZZ Control Bleeding in Gastrointestinal Tract, Via Natural or Artificial Opening Endoscopic (ICD-10-PCS; 2017-11-19)
PROC: 0D758ZZ Dilation of Esophagus, Via Natural or Artificial Opening Endoscopic (ICD-10-PCS; 2017-11-19)
DX: I25.10 Atherosclerotic heart disease of native coronary artery without angina pectoris (principal); K25.4 Chronic or unspecified gastric ulcer with hemorrhage; D62 Acute posthemorrhagic anemia; I50.32 Chronic diastolic (congestive) heart failure; E87.1 Hypo-osmolality and hyponatremia; R33.9 Retention of urine, unspecified; E78.5 Hyperlipidemia, unspecified; I11.0 Hypertensive heart disease with heart failure; K22.2 Esophageal obstruction; D50.9 Iron deficiency anemia, unspecified; Z91.81 History of falling; Z95.0 Presence of cardiac pacemaker; Z85.048 Personal history of other malignant neoplasm of rectum, rectosigmoid junction, and anus; Z86.73 Personal history of transient ischemic attack (TIA), and cerebral infarction without residual deficits; Z95.1 Presence of aortocoronary bypass graft; M48.061 Spinal stenosis, lumbar region without neurogenic claudication; M54.16 Radiculopathy, lumbar region; N40.1 Benign prostatic hyperplasia with lower urinary tract symptoms; R33.8 Other retention of urine; D72.829 Elevated white blood cell count, unspecified; T39.395A Adverse effect of other nonsteroidal anti-inflammatory drugs [NSAID], initial encounter; I45.10 Unspecified right bundle-branch block; I25.9 Chronic ischemic heart disease, unspecified; I48.91 Unspecified atrial fibrillation; I95.1 Orthostatic hypotension
CPT/HCPCS: 36415; 36416; 36430; 71045; 71275; 76942; 78452; 80048; 80053; 80061; 82274; 82553; 82728; 83540; 83550; 83880; 84443; 84484; 85025; 85379; 86850; 86900; 86901; 92928; 93005; 93010; 93017; 93306; 93455; 93567; A9500; C1725; C1760; C1769; C1874; C1887; C9113; C9600; G8978-GP-CL; G8978-GP-CM; G8979-GP-CJ; G8987-GO-CK; G8988-GO-CJ; J1100; J1644; J1750; J1940; J2001; J2405; J2704; J2785; J2916; J7050; P9016

== ENCOUNTER 2018-03-08 10:19 | Inpatient (IN) | payer MEDICARE, BC ==
[2018-05-08] MEDS ORDERED: Fentanyl 100 MCG/2 ML VIAL ONE ×3 (06:09→10:20)
[2018-05-08] MEDS ORDERED: Midazolam HCl 2 mg/2 ml Vial ONE (06:32)
[2018-05-08] MEDS ORDERED: Lidocaine 1.5% w/Epi 1:200K 30 ML VIAL (Epid Use) ONE (06:32)
[2018-05-08] MEDS ORDERED: Tranexamic Acid 1,000 MG/10 ML VIAL ONE ×2 (06:54→10:20)
[2018-05-08] MEDS ORDERED: Sodium Chloride 0.9% 100 ML ONE (06:54)
[2018-05-08] MEDS ORDERED: Neomycin-Polymyxin 1 ML AMP ONE (06:57)
[2018-05-08 06:59] LABS: INR-International Normal Ratio 1.1; PTT 30.8 SEC (22.9-36.1); Prothrombin Time 14.6 SEC (12.0-14.7)
[2018-05-08] MEDS ORDERED: Bupivacaine PF 0.5% 30 ML VIAL ONE (07:56)
[2018-05-08] MEDS ORDERED: Acetaminophen 325 MG TAB PO PRN (08:00)
[2018-05-08] MEDS ORDERED: Promethazine HCl 25 MG/ML VIAL IM PRN ×2 (08:30→10:18)
[2018-05-08] MEDS ORDERED: Acetaminophen 1,000 MG in Premix Bag 1 BAG IVPB SCH (08:30)
[2018-05-08] MEDS ORDERED: Torsemide 20 MG TAB PO PRN (08:30)
[2018-05-08] MEDS ORDERED: Ondansetron PF 4 MG/2 ML Vial IVP PRN (08:30)
[2018-05-08] MEDS ORDERED: Tranexamic Acid 1,000 MG in Sodium Chloride 0.9% 100 ML IVPB SCH (08:30)
[2018-05-08] MEDS ORDERED: Morphine 4 MG/ML VIAL SLOW IVP PRN (08:30)
[2018-05-08] MEDS ORDERED: PHENYLEPHRINE-NS 100 MCG/ML 10 ML SYRINGE ONE ×2 (08:57→14:30)
[2018-05-08] MEDS ORDERED: Phenylephrine HCL 10 MG/ML VIAL ONE (08:58)
[2018-05-08] MEDS ORDERED: Aspirin 81 mg Enteric Coated Tablet PO SCH ×2 (09:00→21:00)
--- NOTE | 2018-05-08 09:29 | RAD ---
FAP view right hip. HISTORY: Intraoperative right hip radiograph. Single intraoperative radiograph demonstrates right hip arthroplasty. Acetabular component is in good position. There is a right hip component arthroplasty in the proximal right femur. No evidence of acute fracture seen. IMPRESSION: Intraoperative right hip radiograph.
[2018-05-08] MEDS ORDERED: HYDROmorphone 2 MG/ML VIAL SLOW IVP PRN (10:18)
[2018-05-08] MEDS ORDERED: Ondansetron HCl/PF 4 MG/2 ML Vial IVP PRN (10:18)
[2018-05-08] MEDS ORDERED: Morphine Sulfate 2 MG/ML SYRINGE SLOW IVP PRN (10:18)
[2018-05-08] MEDS ORDERED: Promethazine HCl 25 MG/ML VIAL SLOW IVP PRN (10:18)
[2018-05-08] MEDS ORDERED: Dexamethasone 4 mg/ml Vial ONE (11:06)
[2018-05-08] MEDS ORDERED: Lidocaine 1% (PF) 30 ML VIAL ONE (11:15)
[2018-05-08] MEDS ORDERED: Bupivacaine HCl 0.5%/Epinephrine 1:200,000/PF 30 ml Vial ONE (13:10)
[2018-05-08] MEDS: CEFAZOLIN 2 GM in Premix Bag 1 BAG IVPB SCH ×2 (13:54→16:19)
[2018-05-08] MEDS: Sodium Chloride 0.9% 1,000 ML IV SCH ×2 (13:54→21:19)
[2018-05-08] MEDS: Multivitamin W/ Minerals 1 TAB PO SCH (13:55)
[2018-05-08] MEDS: Ferrous Gluconate 324 MG TAB PO SCH ×2 (13:55→20:56)
[2018-05-08] MEDS: Senokot S 8.6-50 MG TAB PO SCH ×2 (13:56→20:57)
[2018-05-08] MEDS: Atenolol 25 MG TAB PO SCH (13:57)
[2018-05-08] MEDS: Tamsulosin HCl 0.4 MG CAP PO SCH ×2 (13:58→20:56)
[2018-05-08] MEDS: HYDROcodone/Acetaminophen 10/325 mg Tablet PO PRN ×3 (14:02→22:28)
--- NOTE | 2018-05-08 14:10 | RAD ---
RIGHT HIP 2 VIEWS: HISTORY: Postop total hip replacement. Right hip osteoarthritis. FINDINGS/IMPRESSION: Interval postop changes of right total hip arthroplasty are seen in good position and alignment since exam of 01/22/2018 from [facility]. Surgical clips are present. Skin germán are seen. POS: TPC
[2018-05-08] MEDS ORDERED: Lidocaine 1% PF 5 ML VIAL ONE (14:30)
[2018-05-08] MEDS ORDERED: Dexamethasone 20 MG/5 ML VIAL ONE (14:30)
[2018-05-08] MEDS ORDERED: PROPOFOL 200 MG/20 ML VIAL ONE (14:30)
[2018-05-08] MEDS ORDERED: Rocuronium Bromide 10 MG/ML (10ML VIAL) ONE (14:30)
[2018-05-08] MEDS ORDERED: ePHEDrine 50 MG/ML VIAL ONE (14:30)
[2018-05-08] MEDS ORDERED: Glycopyrrolate 0.2 MG/ML 5 ML SYRINGE ONE (14:30)
[2018-05-08 14:44] VITALS: BMI 153.9
--- NOTE | 2018-05-08 17:23 | OP ---
DATE OF PROCEDURE: 05/08/2018 PREOPERATIVE DIAGNOSIS: Osteoarthritis of the right hip. POSTOPERATIVE DIAGNOSIS: Osteoarthritis of the right hip. PROCEDURE PERFORMED: Right total hip arthroplasty. ANESTHESIA: General. VICE PRESIDENT QUALITY IMPROVEMENT: JULIANNE Lazo COMPLICATION: None. CONDITION: Good. ESTIMATED BLOOD LOSS: 300 mL. DRAINS: None. TOURNIQUET: None. TECHNIQUE: Simple stain. DESCRIPTION OF PROCEDURE: The patient was taken to the operating room and placed in supine position. After adequate general anesthesia had been achieved, the patient was placed in the left lateral decubitus position, axillary roll and hip positioner. The right hip and lower extremities were prepped and draped in the usual sterile fashion. The patient had severe limitation of motion with abduction of approximately 15 degrees, flexion 80 degrees, proximally 20 degree flexion contracture, and limited internal and external rotation. The limited posterolateral approach to the hip was performed. It was taken down to subcutaneous tissues, exposing gluteal fascia longitudinally exposing the piriformis. This was released from its insertion and posterior capsular incision was made. The capsule was elevated from femoral neck and the hip dislocated without complication. The femoral head was resected appropriate level and using sequential hand reamers and broaches, it was taken out to a size 2. The trial broaches were left in place and the acetabulum was exposed. Osteophyte and significant labral tissue was debrided using the PATH technique. Distal lateral portal was established with cannula and sequential reaming was started at 45 mm, taken up to 52 mm. A 52 mm Dynasty cup was inserted with a single superior screw. Good purchase was achieved. The patient had large subchondral cystic lesion which was also bone-grafted from the femoral head bone. After trial, 15-degree liner was then inserted, then a short neck with a -3.5, 36 mm head. It was put through range of motion, the patient still has significant flexion contracture. Additional release was performed with the psoas tendon and intracapsular structures. Radiograph showed good position and alignment of the implants and size 2 was chosen. The 15-degree liner was placed posterior and superior and the -3.5 head was impacted to the stem after drawing. Again, stability and alignment were equal. Leg length showed near normal lengthening. Additional fascial release was performed with improved extension. After copious irrigation, the piriformis and posterior capsular repaired with #2 Mersilene, the gluteal fascia and IT band with #2 Mersilene and #1 Vicryl, subcu with 0 and 2-0 Vicryl, and skin with germán. Sterile bulky dressing was applied. The patient was taken to the recovery in stable condition. We will begin rehab protocol. Prognosis is fair due to patient's significant comorbidities and contracture. Job ID: [id number]
--- NOTE | 2018-05-08 19:59 | CON ---
DATE OF CONSULTATION: 05/08/2018 CONSULTING PHYSICIAN: Pj Varner MD CHIEF COMPLAINT: The patient is postop right hip replacement. HISTORY OF PRESENT ILLNESS: This patient is a 77-year-old male, who is postop from right hip replacement with Dr. Varner. He is doing very well postop. He is eating well and has no major complaints at this time. PAST MEDICAL HISTORY: Notable for coronary artery disease. This patient has had prior CABG in 1992 with a redo in 2009. He has had cath with stents placed in 2017 and a pacemaker previously placed in 2010. He also has a history of intermittent atrial fibrillation. He has hyperlipidemia, hypertension, and history of colon cancer, in the rectal area, requiring multiple rounds of radiation therapy. He has had a history of a stroke, requiring PEG tube placement for dysphagia back in 2010, which is largely resolved. He also has a history of bradycardia, requiring a pacemaker placement. FAMILY HISTORY: Heart disease in his father. SOCIAL HISTORY: The patient is a nonsmoker. Occasional alcohol consumer. He has a living will on file in the electronic record system. CURRENT MEDICATIONS: 1. Tramadol 50 mg q.8 hours p.r.n. 2. Demadex 20 mg daily. 3. Gabapentin 100 mg at bedtime. 4. Flexeril 10 mg t.i.d. 5. Plavix 75 daily. 6. Tenormin 25 mg daily. 7. Aspirin 81 mg daily. 8. Tamsulosin 0.4 mg b.i.d. 9. Rosuvastatin 5 mg at bedtime. 10. Pantoprazole 40 mg b.i.d. PHYSICAL EXAMINATION: GENERAL APPEARANCE: Age-appropriate male, in no distress, sitting up in bed, awake, alert, appropriate, in no distress. HEENT: PERRL. No OP lesions. NECK: Supple and symmetric. HEART: Regular rate and rhythm. No murmurs. LUNGS: Clear to auscultation bilaterally. Good chest wall expansion and air exchange. ABDOMEN: Soft, nontender, and nondistended. Positive bowel sounds. No masses. No organomegaly. EXTREMITIES: Warm, dry. No cyanosis, clubbing or edema. Right hip with normal postop dressing. LABORATORY DATA: Preop labs were performed on 04/26/2018 with a white count of 8.4, hemoglobin 12.6, and platelets 208. Coags were normal. Chemistries, sodium 135, potassium 3.8, chloride 96, BUN 18, creatinine 1.18, and glucose 208; however, history of prior blood sugars all were well below 200. IMPRESSION AND PLAN: 1. Postoperative hip replacement. Per Ortho team, doing well. Continue therapy. 2. History of coronary artery disease. The patient was held off for at least six months following his prior cath procedure and was seen in preop by Dr. Waite's office. He appears to be doing quite well and is well compensated. He has not had Plavix for one week in anticipation of this surgery and will resume that tomorrow, which certainly appears to be appropriate. 3. History of chronic diastolic heart failure. Again, the patient appears to be well compensated with no evidence of significant volume overload. 4. History of paroxysmal atrial fibrillation. The patient apparently had a low burden of atrial fibrillation, and therefore, has not been on NOAC, but simply remains on the Plavix. 5. History of right carotid artery stenosis, stable. 6. Pacemaker for history of bradycardia, appears to be normally functioning. 7. History of hyperlipidemia. Continue with the patient's usual home medical regimen. 8. History of cerebrovascular accident, stable. No significant residuals. Job ID: [id number]
[2018-05-08] MEDS: Aspirin 81 mg Enteric Coated Tablet PO SCH (20:56)
[2018-05-08] MEDS: Gabapentin 100 MG CAP PO SCH (20:56)
[2018-05-08] MEDS: Rosuvastatin 5 MG TAB PO SCH (20:56)
[2018-05-08] MEDS ORDERED: CEFAZOLIN 2 GM in Premix Bag 1 BAG IVPB SCH (23:59)
[2018-05-09] MEDS: HYDROcodone/Acetaminophen 10/325 mg Tablet PO PRN ×2 (03:47→18:35)
[2018-05-09 04:54] LABS: Hemoglobin 9.4 g/dL (14.0-18.0); Mean Corpuscular Hemoglobin 30.3 pg (27.0-31.0); Mean Corpuscular Volume 89.3 fL (78.0-98.0); Mean Platelet Volume 7.2 fL (7.4-10.4); Platelet Count 172 thou/uL (130-400); RBC Distribution Width 14.7 % (11.5-14.5); White Blood Cell (WBC) Count 11.8 thou/uL (4.8-10.8)
[2018-05-09] MEDS: traMADol HCl 50 MG TAB PO PRN ×2 (05:35→13:19)
[2018-05-09] MEDS: Sodium Chloride 0.9% 1,000 ML IV SCH ×3 (07:20→21:01)
[2018-05-09] MEDS: Senokot S 8.6-50 MG TAB PO SCH ×2 (08:37→20:48)
[2018-05-09] MEDS: Cyclobenzaprine 10 MG TAB PO PRN ×2 (08:37→18:35)
[2018-05-09] MEDS: Multivitamin W/ Minerals 1 TAB PO SCH (08:37)
[2018-05-09] MEDS: Ferrous Gluconate 324 MG TAB PO SCH ×2 (08:37→20:47)
[2018-05-09] MEDS: Aspirin 81 mg Enteric Coated Tablet PO SCH ×2 (08:38→20:48)
[2018-05-09] MEDS: Tamsulosin HCl 0.4 MG CAP PO SCH ×2 (08:38→20:48)
[2018-05-09] MEDS: Citalopram 20 MG TAB PO SCH (08:38)
[2018-05-09] MEDS: Clopidogrel Bisulfate 75 MG TAB PO SCH (08:38)
[2018-05-09] MEDS: Atenolol 25 MG TAB PO SCH (08:38)
[2018-05-09] MEDS: Rosuvastatin 5 MG TAB PO SCH (20:47)
[2018-05-09] MEDS: Gabapentin 100 MG CAP PO SCH (20:48)
[2018-05-10] MEDS: Cyclobenzaprine 10 MG TAB PO PRN (02:23)
[2018-05-10] MEDS: HYDROcodone/Acetaminophen 10/325 mg Tablet PO PRN ×2 (02:24→14:59)
[2018-05-10 04:55] LABS: Mean Corpuscular HGB CONC 33.9 g/dL (32.0-36.0); Mean Corpuscular Hemoglobin 30.5 pg (27.0-31.0); Mean Corpuscular Volume 90.1 fL (78.0-98.0); Platelet Count 154 thou/uL (130-400); Red Blood Cell (RBC) Count 2.95 mill/uL (4.70-6.10); White Blood Cell (WBC) Count 9.6 thou/uL (4.8-10.8)
[2018-05-10] MEDS: Atenolol 25 MG TAB PO SCH (08:07)
[2018-05-10] MEDS: Clopidogrel Bisulfate 75 MG TAB PO SCH (08:07)
[2018-05-10] MEDS: Ferrous Gluconate 324 MG TAB PO SCH (08:07)
[2018-05-10] MEDS: Senokot S 8.6-50 MG TAB PO SCH (08:07)
[2018-05-10] MEDS: Multivitamin W/ Minerals 1 TAB PO SCH (08:07)
[2018-05-10] MEDS: Aspirin 81 mg Enteric Coated Tablet PO SCH (08:07)
[2018-05-10] MEDS: Tamsulosin HCl 0.4 MG CAP PO SCH (08:07)
[2018-05-10] MEDS: traMADol HCl 50 MG TAB PO PRN (08:08)
[2018-05-10] MEDS: Citalopram 20 MG TAB PO SCH (08:08)
[2018-05-10] MEDS: Sodium Chloride 0.9% 1,000 ML IV SCH (08:10)
[2018-05-10] MEDS ORDERED: Cyclobenzaprine 10 MG TAB PO PRN (11:38)
[2018-05-10] MEDS ORDERED: ALPRAZolam 0.5 MG TAB PO PRN (11:38)
[2018-05-10] MEDS ORDERED: HYDROcodone/Acetaminophen 10/325 mg Tablet PO PRN (11:38)
[2018-05-10 16:12] VITALS: BP 148/60; TEMP 97.6
== END 2018-05-10 15:50 | disposition home or self-care (01) | DRG 470 ==
LOC: SURG A 05-08 05:43 → SJJU 05-08 12:27
PROVIDERS: ADMIT Orthopaedic Surgery; ATTEND Orthopaedic Surgery
PROC: 0SR90JZ Replacement of Right Hip Joint with Synthetic Substitute, Open Approach (ICD-10-PCS; principal; 2018-05-08)
DX: M16.11 Unilateral primary osteoarthritis, right hip (principal); I25.10 Atherosclerotic heart disease of native coronary artery without angina pectoris; E78.5 Hyperlipidemia, unspecified; I10 Essential (primary) hypertension; Z95.1 Presence of aortocoronary bypass graft; Z85.038 Personal history of other malignant neoplasm of large intestine; Z92.3 Personal history of irradiation; Z79.82 Long term (current) use of aspirin; Z79.02 Long term (current) use of antithrombotics/antiplatelets; Z86.73 Personal history of transient ischemic attack (TIA), and cerebral infarction without residual deficits
CPT/HCPCS: 36415; 85027; 85610; 85730; 86850; 86900; 86901; C1776; J0670; J1100; J2001; J2250; J2370; J2704; J3010; J3490; J7050; S0020

== ENCOUNTER 2018-04-26 12:31 | Outpatient (CLI) | payer MEDICARE, BC ==
[2018-04-26 13:51] LABS: #Eosinphils 0.3 thou/uL (0.0-0.7); #Lymphocytes 1.1 thou/uL (1.20-3.40); #Monocytes 0.6 thou/uL (0.11-0.59); #Neutrophils 6.4 thou/uL (1.40-6.50); %Basophils 0.4 % (0.0-1.0); %Eosinophils 3.5 % (0.0-10.0); %Lymphocytes 13.1 % (21.0-51.0); Hemoglobin 12.6 g/dL (14.0-18.0); Mean Corpuscular HGB CONC 32.4 g/dL (32.0-36.0); Mean Corpuscular Hemoglobin 29.3 pg (27.0-31.0); Mean Corpuscular Volume 90.5 fL (78.0-98.0); Mean Platelet Volume 6.8 fL (7.4-10.4); Platelet Count 209 thou/uL (130-400); RBC Distribution Width 14.7 % (11.5-14.5); Red Blood Cell (RBC) Count 4.29 mill/uL (4.70-6.10); White Blood Cell (WBC) Count 8.4 thou/uL (4.8-10.8)
[2018-04-26 14:08] LABS: Anion Gap 14 mmol/L (10-20); BUN (Urea Nitrogen) 18 mg/dL (8.4-25.7); Calc. Creatinine Clearance 0 mL/min (70-130); Calcium 9.4 mg/dL (7.8-10.44); Carbon Dioxide 29 mmol/L (23-31); Chloride 96 mmol/L (98-107); Estimated GFR-MDRD 60; Glucose 208 mg/dL (83-110); Potassium 3.8 mmol/L (3.5-5.1); Sodium 135 mmol/L (136-145)
--- NOTE | 2018-04-27 16:45 | EKG ---
Test Reason : Blood Pressure : / mmHG Vent. Rate : 065 BPM Atrial Rate : 000 BPM P-R Int : 000 ms QRS Dur : 126 ms QT Int : 476 ms P-R-T Axes : 000 -61 012 degrees QTc Int : 495 ms Electronic atrial pacemaker Right bundle branch block Left anterior fascicular block Bifascicular block Abnormal ECG When compared with ECG of 16-NOV-2017 15:50, Electronic atrial pacemaker has replaced Sinus rhythm ST no longer depressed in Anterolateral leads T wave inversion no longer evident in Inferior leads T wave inversion no longer evident in Anterolateral leads Confirmed by DR. Jossie MOULTON ([id number]) on 04/27/2018 4:44:43 PM Referred By: OSIRIS Confirmed By:DR. Jossie MOULTON
== END 2018-04-26 12:32 | disposition home or self-care (01) ==
LOC: LABBT 12:31
PROVIDERS: ATTEND Orthopaedic Surgery
DX: Z01.818 Encounter for other preprocedural examination (principal); M16.11 Unilateral primary osteoarthritis, right hip
CPT/HCPCS: 80048; 85025; 87081; 93005; 93010

== ENCOUNTER 2024-09-08 11:22 | Observation (INO) | payer MEDICARE, BC ==
[2024-09-08 11:59] LABS: #Basophils 0.06 10x3/uL (0.0-0.2); #Eosinophils 0.12 10x3/uL (0.0-0.7); #Monocytes 0.58 10x3/uL (0.11-0.59); #Neutrophils 5.97 10x3/uL (1.40-6.50); %Basophils 0.8 % (0.0-1.0); %Eosinophils 1.6 % (0.0-10.0); %Lymphocytes 7.8 % (21.0-51.0); %Monocytes 7.9 % (0.0-10.0); %Neutrophils 81.4 % (42.0-75.0); Hematocrit 37.2 % (42.0-52.0); Hemoglobin 12.2 g/dL (14.0-18.0); Mean Corpuscular Hemoglobin 31.6 pg (27.0-31.0); Mean Corpuscular Volume 96.4 fL (78.0-98.0); Platelet Count 180 10x3/uL (130-400); Red Blood Cell (RBC) Count 3.86 mill/uL (4.70-6.10); White Blood Cell (WBC) Count 7.34 10x3/uL (4.8-10.8)
[2024-09-08 12:19] LABS: ALT (SGPT) 11 U/L (Less than 45); AST (SGOT) 19 U/L (11-34); Albumin 3.8 g/dL (3.1-4.5); Alkaline Phosphatase 98 U/L (40-110); Anion Gap 13 mmol/L (10-20); BUN (Urea Nitrogen) 16 mg/dL (8.4-25.7); Bilirubin, Total 1.4 mg/dL (0.3-1.2); Calc. Creatinine Clearance 0 mL/min (70-130); Calcium 9.2 mg/dL (7.8-10.44); Carbon Dioxide 28 mmol/L (23-31); Chloride 100 mmol/L (98-107); Globulin 3.1 g/dL (2.4-3.5); Glucose 143 mg/dL (83-110); Potassium 4.1 mmol/L (3.5-5.1); Sodium 137 mmol/L (136-145)
[2024-09-08 12:25] LABS: Troponin I 0.019 ng/mL (< 0.028)
[2024-09-08] MEDS ORDERED: Furosemide 40 MG (4 mL) VIAL ONE (12:52)
[2024-09-08 17:37] LABS: Troponin I 0.022 ng/mL (< 0.028)
[2024-09-08 18:00] VITALS: BMI 27.8
[2024-09-08 19:00] LABS: Troponin I 0.030 ng/mL (< 0.028)
[2024-09-08] MEDS: Amiodarone 200 MG TAB PO SCH (20:22)
[2024-09-08] MEDS: Rosuvastatin 5 MG TAB PO SCH (20:23)
[2024-09-08] MEDS: Apixaban 2.5 MG TAB PO SCH (20:25)
[2024-09-08] MEDS: Acetaminophen 325 MG TAB PO PRN (20:25)
[2024-09-08] MEDS ORDERED: Famotidine 20 MG TAB PO SCH (21:00)
[2024-09-08] MEDS: Gabapentin 100 MG CAP PO SCH (21:57)
[2024-09-08] MEDS: Melatonin 3 MG TAB PO PRN (21:59)
[2024-09-09 05:20] LABS: Anion Gap 13 mmol/L (10-20); BUN (Urea Nitrogen) 19 mg/dL (8.4-25.7); Calc. Creatinine Clearance 36 mL/min (70-130); Calcium 8.9 mg/dL (7.8-10.44); Carbon Dioxide 29 mmol/L (23-31); Chloride 101 mmol/L (98-107); Glucose 131 mg/dL (83-110); Magnesium 1.6 mg/dL (1.6-2.6); Potassium 3.8 mmol/L (3.5-5.1); Sodium 139 mmol/L (136-145)
[2024-09-09] MEDS: Furosemide 40 MG (4 mL) VIAL SLOW IVP SCH (06:20)
[2024-09-09] MEDS: Aspirin 81 mg Enteric Coated Tablet PO SCH (08:16)
[2024-09-09] MEDS: Pantoprazole 40 MG DR.TAB PO SCH (08:17)
[2024-09-09] MEDS: Metoprolol Succinate XL 25 MG ER.TAB PO SCH (08:17)
[2024-09-09 15:46] VITALS: BP 157/66; TEMP 98.5
== END 2024-09-09 15:55 | disposition home or self-care (01) ==
LOC: ERS 11:22 → OBS 15:32 → 2SE 18:47
PROVIDERS: ADMIT Hospitalist; ATTEND Emergency Medicine
PROC: B24BZZZ Ultrasonography of Heart with Aorta (ICD-10-PCS; principal; 2024-09-09)
DX: I11.0 Hypertensive heart disease with heart failure (principal); I50.9 Heart failure, unspecified; I34.0 Nonrheumatic mitral (valve) insufficiency; I35.1 Nonrheumatic aortic (valve) insufficiency; I07.1 Rheumatic tricuspid insufficiency; I48.0 Paroxysmal atrial fibrillation; N40.0 Benign prostatic hyperplasia without lower urinary tract symptoms; R33.8 Other retention of urine; Z85.038 Personal history of other malignant neoplasm of large intestine; Z95.5 Presence of coronary angioplasty implant and graft; Z95.1 Presence of aortocoronary bypass graft; Z95.0 Presence of cardiac pacemaker; Z79.899 Other long term (current) drug therapy
CPT/HCPCS: 71045; 76870; 80048; 80053; 83735; 83880; 84443; 84484 ×2; 85025; 93005; 93306; 93976; 94760; J1940 ×2; 36415; 96374; 96376; G0378